=== PATIENT | male | born 1950 | race Caucasian/White ===

== ENCOUNTER 2024-11-08 09:01 | Inpatient (IN) | payer MEDICARE, BC ==
[~2024-11-08] VITALS: Ht 175.3 cm; Wt 104.4 kg
[2024-11-08] VITALS (19 sets, daily range): BP systolic 71–193; BP diastolic 44–73; PULSE 60–98; RESP 14–27; O2SAT 94–100
[~2024-11-08 09:01] MED LIST: heparin 1,000 UNITS/NS 500ml (2 units/mL) BAG ONE
[2024-11-08] MEDS: epiNEPHrine inj 5 MG in normal saline 250ml IV soln 245 ML IV SCH (09:15)
--- NOTE | 2024-11-08 09:15 | CARDIAC CATH REPORT ---
Cardiology Post Cath Findings Findings Findings: 74yo man with unknown PMH presented to [facility] this AM after being found down. There, thought to have STEMI so activated, however, there was a case going on in the lab so he was to be transferred to [facility]. Prior to transfer, had ?PEA vs VT arrest s/p CPR with ROSC. Intubated. On transfer, maxed out on levo, epi, vaso, non-responsive without any sedation. Here, again had VT code s/p CPR with ROSC, cardioverted. Post cardioversion EKG with RBBB, no clear STEMI. Labs revealing a pH of 6.9, LA of 10.7, K 3.2. Recommendations Recommendations Given unknown mental status after prolonged CPR, maxed out on multiple pressors, reports of being a DNR, no clear STEMI on EKG, will not proceed for coronary angiography at this time. JEFF HENDRICKSON MD Nov 08, 2024 09:15
[2024-11-08] MEDS ORDERED: heparin 25,000 UNIT/250ml bag 250 ML IV PRN ×2 (09:20→12:00)
[2024-11-08] MEDS ORDERED: heparin 10,000 units/1 ML INJ IV PRN (09:20)
[2024-11-08 09:26] LABS: ABG BASE EXCESS -14.4 mmol/L (-2.0-3.0); ABG HCO3 16.0 mmol/L (21.0-28.0); ABG OXYGEN SATURATION 92.8 % (94.0-98.0); ABG PCO2 (T) 56.5 mmHg (35.0-48.0); ABG PH (T) 7.069 (7.350-7.450); ABG PO2 (T) 89.5 mmHg (83.0-108.0); FCOHb 0.3 % (0.5-1.5); FHHb 7.2 % (0.0-5.0); FIO2 100.0 mmHg/%; FMetHb 0.3 % (0.0-1.5); FO2Hb 92.2 % (94.0-98.0); MODE VENT - PRVC; PATIENT TEMPERATURE 36.8; PEEP 8 cm H2O; RESPIRATORY RATE 20 b/min; TIDAL VOLUME 550 mL; TOTAL HEMOGLOBIN 13.1 G/dl (13.5-17.5)
[2024-11-08 09:31] LABS: MEAN PLATELET VOLUME 8.0 FL (7.4-10.4); RED CELL DISTRIBUTION WIDTH 13.8 % (11.5-14.5)
[2024-11-08] MEDS ORDERED: iohexol 300mg/ml 100ml inj. ONE (09:35)
[2024-11-08] MEDS: NORepinephrine 8mg/ 250ml NS 250 ML IV SCH (09:39)
[2024-11-08] MEDS: VASOPRESSIN 20 UNITS/NS 100mL 100 ML IV ONE (09:40)
[2024-11-08 09:48] LABS: LEUKOCYTE ESTERASE ,URINE NEGATIVE (Neg); NITRITES, URINE NEGATIVE (Neg); OCCULT BLOOD,URINE NEGATIVE (Neg)
[2024-11-08 09:53] LABS: INR 1.2 INR
[2024-11-08 10:02] LABS: UA COLLECTION TYPE FOLEY CATH
[2024-11-08 10:03] LABS: APTT 83 SECONDS (22-32)
[2024-11-08 10:04] LABS: MUCUS STRANDS MODERATE /LPF (Neg); SQUAMOUS EPITHELIAL CELL,UR MANY /LPF (FEW)
[2024-11-08 10:06] LABS: CREATININE 1.17 MG/DL (0.60-1.10); TOTAL CARBON DIOXIDE 20.2 MMOL/L (24-32); eCRCL 54 ML/MIN; eGFR 61 ML/MIN
--- NOTE | 2024-11-08 10:08 | RADIOLOGY REPORT ---
CHEST RADIOGRAPH Indication: post rosc Technique: Single frontal view of the chest was obtained Comparison: None FINDINGS: Lines and Tubes: Endotracheal tube 4 cm from the isidoro. Nasogastric tube tip in the stomach. Lungs: No focal consolidation. Pleura: No effusion. No pneumothorax. Cardiomediastinal contours: Unremarkable Bones: No acute osseous abnormality. IMPRESSION: Cardiomegaly with CHF
[2024-11-08 10:17] LABS: URINE AMPHETAMINE SCREEN NEGATIVE (Neg); URINE BARBITUATE SCREEN NEGATIVE (Neg); URINE BENZODIAZEPINES SCREEN NEGATIVE (Neg); URINE CANNABINOID SCREEN POSITIVE (Neg); URINE COCAINE SCREEN NEGATIVE (Neg); URINE METHADONE SCREEN NEGATIVE (Neg); URINE OPIATE SCREEN NEGATIVE (Neg); URINE PHENCYCLIDINE SCREEN NEGATIVE (Neg)
[2024-11-08] MEDS: MESSAGE TO NURSING IV ONE ×4 (10:35→19:45)
[2024-11-08] MEDS: heparin 25,000 UNIT/250ml bag 250 ML IV PRN ×2 (10:36→12:15)
--- NOTE | 2024-11-08 10:47 | RADIOLOGY REPORT ---
EXAM: CT CT HEAD INDICATION: fall, trauma, cardiac arrest with rosc TECHNIQUE: CT of the head without intravenous contrast. Radiation Dose : 1. Head: CT Dose: CTDI volume is 71 mGy. Dose-length product is 1586.8 mGy*cm The dose indicators for CT are the volume Computed Tomography (CT) Dose Index (CTDIvol) and the Dose Length Product (DLP), and are measured in units of mGy and mGy-cm, respectively. These indicators are not patient dose, but values generated from the CT scanner acquisition factors. The report includes radiation exposure data for exposures received during this examination. COMPARISON: None FINDINGS: There is no evidence of acute intracranial hemorrhage, extra-axial collection, mass effect, midline s hift, herniation or hydrocephalus. The ventricles, sulci and cisterns are age appropriate. The meadows-white differentiation is intact. Patchy periventricular and subcortical white matter hypoattenuation is nonspecific but may be related to small vessel ischemic disease. The visualized paranasal sinuses and mastoid air cells are clear. The surrounding soft tissues and osseous structures are unremarkable. IMPRESSION: No acute intracranial abnormality. Radiation optimization: All CT scans at this facility use at least one of these dose optimization mackenzie hniques: automated exposure control mA and/or kV adjustment per patient size (includes targeted exam s where dose is matched to clinical indication) or iterative reconstruction.
--- NOTE | 2024-11-08 10:50 | RADIOLOGY REPORT ---
EXAM: CT CT T L SPINE HISTORY: fall, trauma, cardiac arrest with rosc COMPARISON: None CTDIvol 35 mGy, DLP 1964 mGy*cm. TECHNIQUE: Multiple axial CT images of the spine were obtained using bone algorithm. Axial and henriquez l reformatting was done. Bone and soft tissue windows were reviewed. FINDINGS: No evidence of definite acute fracture, spinal dislocation, or significant appearing acute subluxatio n is seen. Multilevel degenerative changes of the spine. Vascular calcifications of the aorta. Multifocal patchy airspace disease of the visualized lungs. IMPRESSION: No definite CT evidence of acute fracture or dislocation of the bony thoracic and lumbar spine.
--- NOTE | 2024-11-08 10:52 | RADIOLOGY REPORT ---
EXAM: CT CT CERVICAL SPINE INDICATION: Fall, trauma, cardiac arrest with rosc EXAM DATE: 11/08/2024 09:54 AM COMPARISON: None TECHNIQUE: Multiple axial CT images of the cervical spine were obtained using bone algorithm. Sagitta l and coronal reformatting was done. Bone and soft tissue windows were reviewed. Radiation Dose Information: CT Dose: CTDI volume is 24.0 mGy. Dose-length product is 597.9 mGy*cm FINDINGS: Support lines and tubes: Endotracheal tube is noted in the isidoro. Enteric tube noted in the esophag us. Both tips extend outside the [id number] of the examination. The cervical alignment is intact. Curvature is maintained. No acute cervical spine fracture is identi fied. The vertebral body heights are intact. No suspicious osseous lesions are identified. Multilevel intervertebral disc space narrowing most severe at C5-C6. Mild spinal stenosis at C5-C6. Multilevel neural foraminal stenosis particularly at C5-C6. There is no prevertebral soft tissue swelling. Interlobular septal thickening and ground-glass opacities in the upper lobes consistent with pulmonar y edema. Gas in the right brachiocephalic vein and left external jugular vein which may be related to injectio n. IMPRESSION: 1. No evidence of acute cervical spine fracture or traumatic malalignment. 2. Multilevel degenerative changes in the cervical spine. 3. Pulmonary edema in the partially imaged upper lobes. All CT scans at this medical facility are performed using dose modulation techniques as appropriate t o a performed exam including the following: Automated exposure control was utilized; adjustment of th e MA and/or KV according to patient size; and use of iterative reconstruction technique.
[2024-11-08 10:54] LABS: ETHANOL < 10 MG/DL (<10); PRO BRAIN NATRIURETIC PEPTIDE 687 PG/ML (0-450)
--- NOTE | 2024-11-08 11:13 | RADIOLOGY REPORT ---
Exam: CT CT CHEST ABDOMEN PELVIS W/ IV CONTRAST History: fall, trauma, cardiac arrest with rosc Comparison Study: None Technique: Multidetector CT of the chest, abdomen and pelvis was performed from lower neck to pubic s ymphysis. Intravenous contrast was administered during this examination. Coronal and sagittal multipl al reformats were performed by the technologist on a separate workstation. Radiation Dose Information: CT Dose: CTDI volume is 29.8 mGy. Dose-length product is 1754.7 mGy*cm Findings: Support lines and tubes: The endotracheal tube terminates above the isidoro. The enteric tube termina marlena in the stomach. Lower neck: Unremarkable thyroid. Lungs: Diffuse bilateral ground-glass opacities and interlobular septal thickening. Bilateral lower lobe opacities. Pleura: No pneumothorax. No large pleural effusion. Central airways: Patent. Heart/Vascular Structures: The heart is enlarged. No pericardial effusion. Coronary artery calcifica tions. AICD noted. Normal caliber thoracic aorta without aneurysm or dissection. There is filling d efect in the left lower lobe pulmonary artery consistent with pulmonary embolism. RV to LV ratio devang ures 1.5. Lymph Nodes: No adenopathy. Liver: The liver is normal in size. No focal lesions. Normal hepatic vascular enhancement. Gallbladder and Biliary Tree: Enhancement of the gallbladder wall. No calcified gallstones noted. No biliary ductal dilatation. Spleen: Unremarkable Pancreas: The pancreas is normal in appearance without focal lesions or abnormal enhancement. Adrenal Glands: High attenuation of the bilateral adrenal glands. No mass. Kidneys: Kidneys demonstrate normal symmetric enhancement without focal lesions, calculi or hydroneph rosis. Bladder: Gipson catheter in the urinary bladder. Urinary bladder wall thickening. Bowel: The stomach is grossly normal in appearance. Small bowel and colon are normal in caliber and d istribution. The appendix is not visualized; however, no secondary findings of acute appendicitis id entified. Ascites: Absent. Lymphadenopathy: No mesenteric, retroperitoneal or periportal lymphadenopathy. Abdominal Wall and Mesentery: Unremarkable. Vasculature: The visualized abdominal aorta is normal in size and caliber. Abdominal and pelvic vess els demonstrate normal enhancement. There are atherosclerotic calcifications in the aorta. Pelvic Organs: Unremarkable. Musculoskeletal: Acute fractures of the right 2nd, 3rd, 4th, 5th, 6th anterior ribs and acute fractur es of the left 2nd, 3rd, 4th, 5th and 6 anterior ribs. IMPRESSION: 1. Left lower lobe pulmonary embolism. RV to LV ratio measures 1.5. 2. Acute bilateral rib fractures. 3. Wall thickening of the urinary bladder may be related to underdistention however correlation for c ystitis recommended. All CT scans at this medical facility are performed using dose modulation techniques as appropriate t o a performed exam including the following: Automated exposure control was utilized; adjustment of th e MA and/or KV according to patient size; and use of iterative reconstruction technique.
[2024-11-08] MEDS: midazolam 100mg in NS 100ml 100 ML IV SCH (11:52)
--- NOTE | 2024-11-08 12:00 | Physician Documentation ---
History of Present Illness ~ Chief Complaint: Code Blue Stated Complaint: CODE Time Seen by MD: 09:09 HPI History, review of systems, physical examination extremely limited due to acuity of patient's clinical condition. This is a 74-year-old gentleman from [facility], who had a witnessed collapse with either myoclonic jerking or seizure-like activity, was found to have STEMI at the outside facility. The catheterization lab at the outside facility was encumbered and transfer was ini tiated for microbiology lab assistant and further management. The patient coded at the outside facility, they obtained return of spontaneous circulation with what was interpreted as a team stone like a ST changes in inferior leads. The patient was accepted for transfer pending evaluation whether his appropriate to go to our microbiology lab assistant. On arrival history is not obtainable from the patient. Per nurse that accompanied the patient patient was activated as a level one trauma. Unknown what imaging was done at the outside facility. He was evaluated by trauma surgeon and deemed to be appropriate for a transfer here as a STEMI rather than local admitted as a trauma. Patient is full code her . Medication Reconciliation Allergies: Coded Allergies: No Known Allergies (Unverified , 11/08/24) Miscellaneous Medications Unable to Obtain Medications (Unable to Obtain Medications), (Reported) Review of Systems ROS Limited as above Physical Exam Vital Signs: Temperature: 98.2, Source: Bladder, Heart Rate: 100, Respiratory Rate: 22, BP: 129/67, Pulse Oximetry: 100, Weight: 100.000 Oxygen Flow Rate: 0 Physical Exam GENERAL: Comatose, intubated, sedated, GCS 3T, no apparent distress, chronical ly ill appearing, does not answers questions, does not follows commands appropriately. Patient assessed immediately upon arrival and found to be in the pulseless state. CPR was initiated. HEENT: Abrasion to the nose, normocephalic, pupils equal at 2 mm and very sluggishly reactive, unable to assess extraocular range of motion of the eyes, sclerae anicteric, mucus membranes dry, oropharynx is contains endotracheal tube no stridor. NECK: supple, full passive range of motion, trachea midline, no thyromegaly, no lymphadenopathy, no JVD. CARDIOVASCULAR: Initially no spontaneous rhythm, after return of spontaneous circulation V-tach, after cardioversion sinus rhythm with a regular rate and rhythm , no murmurs/gallops/rubs, Pulses are 2+ in all extremities and symmetric. Capillary refill less than 2 seconds. PULMONARY: Mechanically ventilated good air movement ,no respiratory distress, coarse breath sounds bilaterally, no wheezing, no ronchi, no rales, no accessory muscle use. GASTROINTESTINAL: Soft, non-tender, non-distended, normal active bowel sounds, no organomegaly, no pulsatile masses, no CVA tenderness. NEUROLOGIC: GCS 3T. Meaningful neurologic examination not possible MUSCULOSKELETAL: There is full range of motion of all extremities. There is no joint pain or joint swelling or joint erythema. There is no muscle pain or t enderness or swelling. EXTREMITIES: warm, well-perfused, no cyanosis, no clubbing, no edema, no acute deformities. Skin: warm, dry, no rashes or lesions, no jaundice, no petechiae orpurpura. No ecchymosis. PSYCHIATRIC: Unable to assess Focused: Chest wall appears to have bilateral rib fractures. Procedures Intubation Intubation Time: 08 Endotracheal Tube Size: 8.0 Progress Results/Orders Results/Orders Orders - RIGO ULRICH DO Abg (Arterial Blood Gas) (11/08/24 09:09) Chest,Single View (11/08/24 09:09) Monitor (11/08/24 09:09) Saline Lock (11/08/24 09:09) Vasopressin 20 Units/Ns 100ml (Vasopress (11/08/24 09:10) Ct Cervical Spine (11/08/24 10:00) Ct Head (11/08/24 10:00) Ct Chest Abdomen Pelvis (11/08/24 10:00) Oxygen (11/08/24 09:19) Norepinephrine 8mg/ 250ml Ns (Norepineph (11/08/24 09:20) Normal Saline 250ml... W/Epinephrine Inj (11/08/24 09:20) Fentanyl-0.9 % Nacl/Pf (Fentanyl 1,000mc (11/08/24 09:20) Ct T&L Spine (11/08/24 10:00) Ventilator Settings (11/08/24 11:18) Cult Sputum + Gram Stain (11/08/24 11:18) Heparin 10,000 Unit/Ml 1ml (Heparin 10,0 (11/08/24 12:00) Heparin 25,000 Unit/250ml Bag (Heparin 2 (11/08/24 12:02) Hospitalist Icu Consultation (11/08/24 12:51) Fill Out Med Reconciliation (11/08/24 12:51) Dvt Ptt (11/08/24 18:15) Completed Orders - RIGO ULRICH DO Electrocardiogram (11/08/24 09:09) Cbc/Diff (11/08/24 09:09) Chest,Single View (11/08/24 09:09) MG (11/08/24 09:09) CMP (11/08/24 09:09) Hs Troponin I W Calculations (11/08/24 09:09) Hs Troponin I W Calculations (11/08/24 11:09) Hs Troponin I W Calculations (11/08/24 12:09) Pt Inr (11/08/24 09:22) PTT (11/08/24 09:22) Drug Screen, Urine (11/08/24 09:22) Ct Cervical Spine (11/08/24 10:00) Ct Head (11/08/24 10:00) Ct Chest Abdomen Pelvis (11/08/24 10:00) Lacticsepsis (11/08/24 09:22) Heparin 25,000 Unit/250ml Bag (Heparin 2 (11/08/24 09:20) Heparin 10,000 Unit/Ml 1ml (Heparin 10,0 (11/08/24 09:20) Midazolam 100mg In Ns 100ml (Midazolam-N (11/08/24 09:20) Iohexol 300mg/Ml 100ml Inj. (Omnipaque-3 (11/08/24 09:35) Heparin 25,000 Unit/250ml Bag (Heparin 2 (11/08/24 09:40) Ct T&L Spine (11/08/24 10:00) Ethanol (11/08/24 09:24) Lipase (11/08/24 09:24) PBNP (11/08/24 09:24) Message To Nursing (11/08/24 09:45) Ua W/Microscopic, Cult If Ind (11/08/24 09:31) Message To Nursing (11/08/24 11:40) Heparin 25,000 Unit/250ml Bag (Heparin 2 (11/08/24 12:00) Message To Nursing (11/08/24 12:05) Normal Saline 1000ml (Sodium Chloride 10 (11/08/24 12:10) Lactic,2hr (11/08/24 12:46) Medications Received in ER Medications (Trade) Dose Ordered Sig/Declan Route PRN Reason Start Time Stop Time Status Last Admin Dose Admin Heparin Sodium/ Dextrose 250 ml @ 9 mls/hr [id number] PRN IV TO MAINTAIN PTT WITHIN RANGE 11/08/24 12:02 11/08/24 12:15 9 MLS/HR Sodium Chloride 1,000 ml @ 1,000 mls/hr ONCE ONCE IV 11/08/24 12:10 11/08/24 13:09 DC 11/08/24 12:13 1,000 MLS/HR Propofol 100 ml @ 3 mls/hr [id number] IV 11/08/24 13:55 11/08/24 14:30 3 MLS/HR Vital Signs 11/08/24 11/08/24 11/08/24 11/08/24 09:02 09:04 09:17 09:26 Temp 98.4 98.4 Pulse 60 81 61 60 Resp 20 16 20 20 B/P (MAP) 171/98 131/70 (90) 157/82 (107) Pulse Ox 97 97 94 95 FiO2 100 100 100 11/08/24 11/08/24 11/08/24 11/08/24 09:35 09:39 10:24 10:30 Temp 98.4 98.4 Pulse 61 67 70 Resp 20 22 22 B/P (MAP) 157/133 (141) 170/86 136/53 (80) Pulse Ox 97 94 98 FiO2 100 100 100 11/08/24 11/08/24 11/08/24 11/08/24 10:46 10:56 11:02 11:06 Temp 98.4 98.4 98.4 Pulse 72 70 68 67 Resp 24 22 22 22 B/P (MAP) 165/67 (99) 148/57 (87) 107/51 (69) 103/47 (65) Pulse Ox 97 95 98 98 O2 Flow Rate 0 FiO2 100 100 100 11/08/24 11/08/24 11/08/24 11/08/24 11:15 11:37 11:52 11:53 Temp 98.4 98.2 Pulse 70 100 Resp 22 22 B/P (MAP) 113/53 104/53 (70) 133/68 129/67 (87) Pulse Ox 100 100 FiO2 100 100 11/08/24 11/08/24 11/08/24 11/08/24 12:08 12:19 13:21 13:25 Temp 98.2 98.0 98.0 Pulse 99 99 93 98 Resp 22 22 23 24 B/P (MAP) 123/67 (85) 128/69 (88) 123/76 (92) Pulse Ox 100 100 99 100 O2 Flow Rate 0 0 FiO2 100 100 100 80 11/08/24 11/08/24 11/08/24 11/08/24 13:33 13:41 13:42 14:30 Temp 98.0 98.0 Pulse 87 74 Resp 23 23 B/P (MAP) 131/72 (91) 119/63 (81) 120/60 Pulse Ox 100 100 FiO2 80 50 50 11/08/24 14:31 Temp 98.5 Pulse 76 Resp 21 B/P (MAP) 121/65 (83) Pulse Ox 100 FiO2 49 Laboratory Tests Test 11/08/24 09:19 11/08/24 09:24 11/08/24 09:31 11/08/24 11:16 Blood Gas Specimen Type Arterial Blood Gas Puncture Site Wilmer O2 Saturation 92.8 L Arterial Blood pH (Temp corrected) 7.069 *L Arterial Blood pCO2 (Temp correct) 56.5 H Arterial Blood pO2 (Temp corrected) 89.5 Arterial Blood PO2/FiO2 Ratio 0.91 Arterial Blood HCO3 16.0 L Arterial Blood Base Excess -14.4 L Arterial Blood Oxyhemoglobin 92.2 L Arterial Blood Carboxyhemoglobin 0.3 L Arterial Blood Methemoglobin 0.3 Arterial Blood Deoxyhemoglobin 7.2 H Andrea Test Na Blood Gas Hemoglobin 13.1 L Blood Gas Temperature 36.8 Blood Gas Set Respiration Rate 20 Blood Gas Modality Vent - prvc FiO2 100.0 Blood Gas Tidal Volume 550 Blood Gas PEEP 8 Blood Gas Critical Value Called To Dr. santos ji White Blood Count 11.1 H Red Blood Count 4.07 L Hemoglobin 12.3 L Hematocrit 38.2 L Mean Corpuscular Volume 93.9 Mean Corpuscular Hemoglobin 30.2 Mean Corpuscular Hemoglobin Concent 32.2 L Red Cell Distribution Width 13.8 Platelet Count 138 L Mean Platelet Volume 8.0 Neutrophils (%) (Auto) 55.1 Lymphocytes (%) (Auto) 38.9 Monocytes (%) (Auto) 2.3 Eosinophils (%) (Auto) 3.0 Basophils (%) (Auto) 0.7 Neutrophils # (Auto) 6.1 Lymphocytes # (Auto) 4.3 Monocytes # (Auto) 0.3 Eosinophils # (Auto) 0.3 Basophils # (Auto) 0.1 CBC Comment Prothrombin Time 12.4 H INR International Normalized Ratio 1.2 Activated Partial Thromboplast Time 83 *H Coagulation Comments Sodium Level 140 Potassium Level 3.1 L Chloride Level 103 Carbon Dioxide Level 20.2 L Anion Gap 17 H Blood Urea Nitrogen 15 Creatinine 1.17 H Estimated GFR/1.73 m2 61 BUN/Creatinine Ratio 12.8 Glucose Level 354 H Calcium Level 10.4 H Magnesium Level 2.6 H Total Bilirubin 0.3 Aspartate Amino Transf (AST/SGOT) 267 H Alanine Aminotransferase (ALT/SGPT) 260 H Alkaline Phosphatase 84 Troponin I High Sensitivity 196 *H 696 *H Pro-B-Type Natriuretic Peptide 687 H Total Protein 5.5 L Albumin 2.6 L Globulin 2.9 Albumin/Globulin Ratio 0.9 L Lipase 49 Chemistry Comments Ethyl Alcohol Level < 10 Urine Specimen Description Gipson cath Urine Color Yellow Urine Clarity Slightly cloudy Urine pH 6.0 Urine Specific [place] 1.025 Urine Protein Negative Urine Glucose (UA) Negative Urine Ketones Negative Urine Occult Blood Negative Urine Nitrite Negative Urine Bilirubin Negative Urine Urobilinogen 1.0 Urine Leukocyte Esterase Negative Urine RBC None seen Urine WBC 0-4 Urine Squamous Epithelial Cells Many Urine Bacteria None seen Urine Mucus Moderate Urine Culture Indicated Not ind Volume Urine Centrifuged 2 ml Urine Comment Low volume Urine Opiates Screen Negative Urine Methadone Screen Negative Urine Fentanyl Screen Negative Urine Barbiturates Screen Negative Urine Phencyclidine Screen Negative Urine Amphetamines Screen Negative Urine Benzodiazepines Screen Negative Urine Cocaine Screen Negative Urine Cannabinoids Screen Positive Drug Screen Comment Lactic Acid Level 8.8 *H Troponin I High Sens Percent Delta 255 Troponin I Hi Sens Absolute Change 500 Test 11/08/24 13:36 11/08/24 14:44 Blood Gas Specimen Type Arterial Blood Gas Puncture Site Wilmer O2 Saturation 99.2 H Arterial Blood pH (Temp corrected) 7.411 Arterial Blood pCO2 (Temp correct) 23.9 L Arterial Blood pO2 (Temp corrected) 216.2 H Arterial Blood PO2/FiO2 Ratio 2.73 Arterial Blood HCO3 14.9 L Arterial Blood Base Excess -7.9 L Arterial Blood Oxyhemoglobin 98.8 H Arterial Blood Carboxyhemoglobin 0.3 L Arterial Blood Methemoglobin 0.1 Arterial Blood Deoxyhemoglobin 0.8 Andrea Test Na Blood Gas Hemoglobin 14.0 Blood Gas Temperature 36.5 Blood Gas Set Respiration Rate 22 Blood Gas Modality Vent - prvc FiO2 80.0 Blood Gas Tidal Volume 550 Blood Gas PEEP 8 Lactic Acid Level 7.2 *H Troponin I High Sensitivity 1468 *H Troponin I High Sens Percent Delta 110 Troponin I Hi Sens Absolute Change 772 Medical Decision Making Findings Facility Status: ED Holds, RME process The plan was discussed with the patient, who demonstrates clear understanding of the plan and is in agreement with the plan unless otherwise noted in the chart. All questions have been answered, all concerns were addressed unless otherwise documented. I was available throughout their ED stay for frequent reassessment and questi ons. Differential Diagnoses (considered and possible or likely): [There is a rather l arge list of reasons for an elderly man who sustained a collapse resultant in cardiopulmonary arrest. Differential includes but not limited to seizure, with a result in hypoxia, PE, ACS, STEMI, malignant arrhythmia, subarachnoid, asystole] ??Differential Diagnoses (considered and unlikely, not requiring evaluation currently): [Less likely to represent stroke] MDM Data Please see HPI for the following: Independent Historians and external Records Review. Historian: EMS, nurse that accompanied the patient from the outside facility, record review Independent Historians: ?[Family] Medication Management: [Reviewed medication list] Social History and determinants: [Reviewed] Please see the body of the note for the following: Any independent interpretations of ECG, imaging studies. All vitals signs/haemodynamics, ordered tests were independently reviewed and interpreted by myself. Nursing triage complaint and vitals reviewed, additional nursing notes were reviewed as available and I agree unless otherwise noted or documented in contradiction in the chart Vital Signs: Independently reviewed Labs: Independently interpreted Imaging: Independently interpreted Old Medical Records: Independently reviewed, see HPI for relevant summary and information Pulse Oximetry: [99% on the ventilator] interpreted as [hypoxia] by me [Ui Ux Developer: [Regular Rate, Regular rhythm, no ectopy, NSR] reviewed and interpreted by me] Additionally notably showing: [Initially was not cardiopulmonary arrest immediately upon arrival, CPR was initiated, return rhythm was V-tach, cardioverted into sinus. Remains on pressors.] Tests considered but not ordered include: [Hemodynamics reviewed. Continues to require pressors. No neurologic improvement. Laboratory studies showed minimal leukocytosis, no anemia, coagulation panel shows normal INR, elevated APTT consistent with the patient being on heparin drip. UA nondiagnostic for UTI. Blood gas showed mixed metabolic and respiratory acidosis. Chemistry shows SHALOM, transaminitis likely from shock liver, elevated troponin, I elevated BNP. Lip ase is normal. U tox is positive for cannabinoids. Trauma imaging was obtained. Chest x-ray shows appropriate positioning of endotracheal tube. Head CT shows no acute intracranial abnormality. CT cervical spine shows no fracture or subluxation. CT of the chest, abdomen and pelvis shows a fairly sizable left lower lung PE. RV to LV ratio is 1.5. Multiple rib fractures as a result of CPR. CT of the T and L-spine shows no acute fracture.] Social Determinants of Health Impact: Patient was evaluated in [facility] [place] to healthcare due to below par ratio of patient to medical providers. [] Comorbid Conditions Impacting Present Evaluation and Care/Treatment: [Multiple, see list] Management Discussions with other Healthcare Providers: [Dr. Deejay Jackson drawstring knotter initially evaluated the patient. Patient is too unstable to proceed to catheterization lab. Repeat EKG does not show stable chronic right bundle-branch block. Podiatry Assistant regarding admission] Treatment and Disposition Medication Management (Given or considered): []. See EMR for details Consideration for Hospitalization/Escalation/Deescalation of Care: Admission for critical care management is required for further management of his condition. ?ED Course:?[No clinical improvement. Neurologically even off sedation during sedation vacation there is no activity. Patient arrived on heparin, heparin was continued. Doses adjusted per pharmacy.] ?Shared decision making:?[Discussed prognosis with the . She understands the prognosis is grave, she wants everything to be continued, however if his heart stops she does not want any further CPR. At this point he is DNR, selective measures with the continued care until potential cardiac arrest.] Code status: DNR Please see the full Electronic Medical Record for full details of nursing documentation, medications list, other records of complete past medical history and conditions, vital signs, laboratory studies, and any radiologic study i nterpretations by radiologists. Portions of this note were completed using [employer] dictation software and as a result there may exist minor errors in spelling. I have reviewed elements of past family and social history and agree as included in note. 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 knotter Admission Level of Care: Critcal Care Impression: Primary Impression: Cardiopulmonary arrest with successful resuscitation Additional Impressions: Ventricular tachycardia Elevated troponin Multiple rib fractures Pulmonary embolus Condition: Critical Referrals: NO PRIMARY CARE PROVIDER (PCP) Education Educated: Family Educated regarding: diagnosis, treatment, prognosis Critical Care Note Critical Care Note CRITICAL CARE TIME: [ 75] minutes Treatments/Evaluations: Close monitoring and treatment of unstable vital signs, cardiorespiratory, and neurologic status, while maintaining tight balance of fluid, respiratory, and cardiac interventions. This time includes discussing the case with the patient and the patients family. This time does not include all procedures stated elsewhere in this record. This time also includes reviewing old records, labs and radiological studies. This time includes examining and re- examining the patient. Additionally, this time also includes arranging care with admitting and consulting physicians. Signature Scribe Signature: No scribe Attestation: This note accurately reflects clinical decisions, work performed by myself, Rigo Ulrich, RIGO ANDUJAR DO Nov 08, 2024 12:00
[2024-11-08] MEDS: normal saline 1000ml 1,000 ML IV ONE (12:13)
--- NOTE | 2024-11-08 12:17 | ELECTROCARDIOGRAPH REPORT ---
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 Jj Tomlinson Measurements Intervals [place] Rate: 85 P: 0 ND: 48 QRS: -62 QRSD: 225 T: 100 QT: 514 QTc: 612 Interpretive Statements Ventricular-paced complexes No further rhythm analysis attempted due to paced rhythm Right bundle branch block Electronically Signed On 11-09-2024 10:24:[address] Jj Tomlinson Please click the below link to view image of tracing.
[2024-11-08] MEDS: FENTANYL-0.9 % NACL/PF 100 ML IV SCH (12:26)
[2024-11-08 13:40] LABS: ABG BASE EXCESS -7.9 mmol/L (-2.0-3.0); ABG HCO3 14.9 mmol/L (21.0-28.0); ABG OXYGEN SATURATION 99.2 % (94.0-98.0); ABG PCO2 (T) 23.9 mmHg (35.0-48.0); ABG PH (T) 7.411 (7.350-7.450); ABG PO2 (T) 216.2 mmHg (83.0-108.0); FCOHb 0.3 % (0.5-1.5); FHHb 0.8 % (0.0-5.0); FIO2 80.0 mmHg/%; FMetHb 0.1 % (0.0-1.5); FO2Hb 98.8 % (94.0-98.0); MODE VENT - prvc; PATIENT TEMPERATURE 36.5; PEEP 8 cm H2O; RESPIRATORY RATE 22 b/min; TIDAL VOLUME 550 mL; TOTAL HEMOGLOBIN 14.0 G/dl (13.5-17.5)
[2024-11-08] MEDS ORDERED: propofol 1000mg/100ml bottle 100 ML IV SCH (13:55)
[2024-11-08] MEDS: propofol 1000mg/100ml bottle 100 ML IV SCH (14:30)
--- NOTE | 2024-11-08 14:43 | HISTORY AND PHYSICAL ---
History of Present Illness History of present illness 74-year-old male who is a resident of [facility] in [facility]. The patient fell down today and was taken to [facility] where and had a cardiac arrest enroute and arrived with chest compressions in progress. He had ROSC and he was diagnosed with an inferior wall STEMI by the trauma surgeon. He was hypotensive and was started on pressors that were escalated to include vasopressin, norepinephrine and epinephrine. The patient was transferred to [facility] because the boot and shoe laborer at [facility] was already engaged in a procedure. The patient arrived here at [facility]. He was coded here at [facility] and we have been able to achieve ROSC. The patient had a CTA of the chest that is revealing a pulmonary embolus in the left lower lobe artery. Heparin has been changed from a cardiac infusion drip to pulmonary embolism/DVT heparin drip. They have been weaned down i.e. now off epinephrine but still on norepinephrine drip at 0.3 mcg/kg per minute and vasopressin at 0.01 units/minute. He is on mechanical ventilation. He is sedated with a combination of midazolam and fentanyl. His temperature is 36.6 C. I was consulted to see the patient. He is spontaneously opening his eyes to verbal seen. Expected to stay > 48 hours Yes Reason for Visit: Pulmonary critical care consultation Chief complaint Status post VFib/V-tach arrest Source: Patient, Family, Caregiver, Unable (condition) Past Medical History Past medical history [id number] Alzheimer's disease, no history of coronary artery disease, history of perforated gallbladder that was treated conservatively leading to sepsis in March of 2024 and May of 2024. Past Surgical History Surgical history Total left knee arthroplasty. Medications Current medications Current Medications Vasopressin/ Sodium Chloride 100 ml @ 3 mls/hr [id number] ONCE IV Last administered on 11/08/24at 09:40; Start 11/08/24 at 09:10; Stop 11/09/24 at 18:29 Norepinephrine Bitartrate 250 ml @ 18.75 mls/ hr [id number] IV Last administered on 11/08/24at 09:39; Start 11/08/24 at 09:20 Epinephrine HCl 5 mg/Sodium Chloride 250 ml @ 30 mls/hr [id number] IV Last administered on 11/08/24at 09:15; Start 11/08/24 at 09:20 Heparin Sodium/ Dextrose 250 ml @ 0 mls/hr Q0M PRN IV TO MAINTAIN PTT WITHIN RANGE; Start 11/08/24 at 09:20; Stop 11/08/24 at 09:40; Status DC Heparin Sodium (Porcine) (heparin 10,000 unit/ml 1ml inj) bolus for correct... PRN PRN IV per protocol-CARDIAC; Start 11/08/24 at 09:20; Stop 11/08/24 at 12:03; Status DC Fentanyl Citrate 100 ml @ 0 mls/hr Q0M IV Last administered on 11/08/24at 12:26; Start 11/08/24 at 09:20 Midazolam HCl 100 ml @ 1 mls/hr Q48H IV Last administered on 11/08/24at 11:52; Start 11/08/24 at 09:20; Stop 11/08/24 at 13:55; Status DC Iohexol (Omnipaque-300 100ml polymer) 100 ml STK-MED ONCE .ROUTE ; Start 11/08/24 at 09:35; Stop 11/08/24 at 09:35; Status DC Heparin Sodium/ Dextrose 250 ml @ 8 mls/hr [id number] PRN IV TO MAINTAIN PTT WITHIN RANGE Last administered on 11/08/24at 10:40; Start 11/08/24 at 09:40; Stop 11/08/24 at 12:02; Status DC Non-Formulary Medication 1 each ONCE ONCE IV ; Start 11/08/24 at 09:45; Stop 11/08/24 at 11:23; Status DC Non-Formulary Medication 1 each ONCE ONCE IV ; Start 11/08/24 at 11:40; Stop 11/08/24 at 11:41; Status DC Heparin Sodium/ Dextrose 250 ml @ 0 mls/hr Q0M PRN IV TO MAINTAIN PTT WITHIN RANGE; Start 11/08/24 at 12:00; Stop 11/08/24 at 12:02; Status DC Heparin Sodium (Porcine) (heparin 10,000 unit/ml 1ml inj) maximum re-peat bolus ... PRN PRN IV Heparin bolus per protocol; Start 11/08/24 at 12:00 Heparin Sodium/ Dextrose 250 ml @ 9 mls/hr [id number] PRN IV TO MAINTAIN PTT WITHIN RANGE Last administered on 11/08/24at 12:15; Start 11/08/24 at 12:02 Non-Formulary Medication 1 each ONCE ONCE IV ; Start 11/08/24 at 12:05; Stop 11/08/24 at 12:06; Status DC Sodium Chloride 1,000 ml @ 1,000 mls/hr ONCE ONCE IV Last administered on 11/08/24at 12:13; Start 11/08/24 at 12:10; Stop 11/08/24 at 13:09; Status DC Propofol 100 ml @ 3 mls/hr [id number] IV ; Start 11/08/24 at 13:55; Stop 11/08/24 at 13:54; Status DC Propofol 100 ml @ 3 mls/hr [id number] IV Last administered on 11/08/24at 14:30; Start 11/08/24 at 13:55 Review of Systems Review of Systems Review of Systems Unable to get review of systems. Patient on mechanical ventilation. Allergies: Coded Allergies: No Known Allergies (Unverified , 11/08/24) Exam Vital signs Vital Signs Date Time Temp Pulse Resp B/P (MAP) Pulse Ox O2 Delivery O2 Flow Rate FiO2 11/08/24 14:31 98.5 76 21 121/65 (83) 100 49 11/08/24 14:30 120/60 11/08/24 13:42 50 11/08/24 13:41 98.0 74 23 119/63 (81) 100 50 11/08/24 13:33 98.0 87 23 131/72 (91) 100 80 11/08/24 13:25 98 24 100 80 11/08/24 13:21 98.0 93 23 123/76 (92) 99 0 100 11/08/24 12:19 98.0 99 22 128/69 (88) 100 0 100 11/08/24 12:08 98.2 99 22 123/67 (85) 100 100 11/08/24 11:53 98.2 100 22 129/67 (87) 100 100 11/08/24 11:52 133/68 11/08/24 11:37 98.4 70 22 104/53 (70) 100 100 11/08/24 11:15 113/53 11/08/24 11:06 98.4 67 22 103/47 (65) 98 0 11/08/24 11:02 68 22 107/51 (69) 98 100 11/08/24 10:56 98.4 70 22 148/57 (87) 95 100 11/08/24 10:46 98.4 72 24 165/67 (99) 97 100 11/08/24 10:30 98.4 70 22 136/53 (80) 98 100 11/08/24 10:24 67 22 94 100 11/08/24 09:39 170/86 11/08/24 09:35 98.4 61 20 157/133 (141) 97 100 11/08/24 09:26 98.4 60 20 157/82 (107) 95 100 11/08/24 09:17 98.4 61 20 131/70 (90) 94 100 11/08/24 09:04 81 16 171/98 97 11/08/24 09:02 60 20 97 100 Physical exam HEENT examination: N/C/AT, PERRL Neck: Soft collar on. Supple with no jugular venous distention and no lymphadenopathy. Chest: Symmetric expansion bilaterally. Pulmonary: Clear to auscultation bilaterally with no wheezing no rales or rhonchi. Cardiovascular: Normal S1 and S2 without any S3-S4 gallop. Abdomen: Soft nontender no organomegaly. Extremities no cyanosis, no clubbing and no edema. Neurology: Spontaneously opening eyes and not commanding Laboratory Results Laboratory Tests 11/08/24 09:24 Chemistry Test 11/08/24 09:24 Albumin 2.6 G/DL (3.4-5.0) L Albumin/Globulin Ratio 0.9 (1.1-1.5) L Calcium Level 10.4 MG/DL (8.5-10.1) H Globulin 2.9 G/DL (2.7-4.3) Magnesium Level 2.6 MG/DL (1.5-2.4) H Total Protein 5.5 G/DL (6.4-8.2) L Coagulation Test 11/08/24 09:24 Prothrombin Time 12.4 SECONDS (9.0-12.0) H INR International Normalized Ratio 1.2 INR Activated Partial Thromboplast Time 83 SECONDS (22-32) *H Coagulation Comments Lipid panel Test 11/08/24 09:24 Lipase 49 U/L (16-77) LFT Test 11/08/24 09:24 Alanine Aminotransferase (ALT/SGPT) 260 U/L (12-78) H Alkaline Phosphatase 84 IU/L (46-116) Aspartate Amino Transf (AST/SGOT) 267 U/L (10-37) H Total Bilirubin 0.3 MG/DL (0.1-1.0) Urinalysis Test 11/08/24 09:31 Urine Specimen Description Gipson cath Urine Color Yellow (Yellow) Urine Clarity Slightly cloudy (Clear) Urine pH 6.0 (4.8-8.0) Urine Specific Union 1.025 (1.001-1.035) Urine Protein Negative mg/dl (Neg) Urine Glucose (UA) Negative mg/dl (Neg) Urine Ketones Negative mg/dl (Neg) Urine Occult Blood Negative (Neg) Urine Nitrite Negative (Neg) Urine Bilirubin Negative (Neg) Urine Urobilinogen 1.0 E.U/dL (0.2-1.0) Urine Leukocyte Esterase Negative (Neg) Urine RBC None seen /HPF (0-2) Urine WBC 0-4 /HPF (0-4) Urine Squamous Epithelial Cells Many /LPF (FEW) Urine Bacteria None seen /HPF (Neg) Urine Mucus Moderate /LPF (Neg) Urine Culture Indicated Not ind Volume Urine Centrifuged 2 ml Urine Comment Low volume Microbiology Microbiology 11/08/24 Respiratory Culture - Preliminary, Resulted Assessment/Plan Plan Acute respiratory failure Status post VFib/V-tach arrest leading to a fall Pulmonary embolism of the left lower lobe pulmonary artery Alzheimer's disease STEMI Transaminitis: Most likely due to shock liver Lactic acidosis: Most likely due to cardiac arrest causing poor organ perfusion Hypokalemia Plan Continue mechanical ventilation for now and change Versed to propofol. Continue fentanyl Normothermia protocol to maintain a temperature of 36 C Continue to cycle cardiac enzymes until they peak Continue heparin drip Initiate amiodarone drip Keep NPO Code status: DNR Sedation/analgesia: Propofol and fentanyl. Midazolam that was infusing at 1 mg an hour discontinued Prophylaxis: Already on heparin drip. Add Protonix drip IVs: Couple of peripheral IVs. Needs central line. Overall prognosis: Guarded Critical care time: 35 minutes. VTE VTE Risk Score VTE Risk Score Reference Ranges: Score 0-1 = Low Risk (Aggressive mobilization; early ambulation; no VTE prophylaxis required) Score 2: Moderate Risk (Intermittent/Pneumatic Compression Device OR Lovenox/Heparin/Coumadin) Score 3-4: High Risk (Intermittent/Pneumatic Compression Device AND Lovenox/Heparin/Coumadin) Score > or = 5: Highest Risk (Intermittent/Pneumatic Compression Device AND Lovenox/Heparin/Coumadin) MAYLIN DACOSTA MD Nov 08, 2024 14:43
[2024-11-08] MEDS ORDERED: magnesium hydroxide 30ml (MOM) UD suspension PO PRN (15:00)
[2024-11-08] MEDS ORDERED: magnesium sulf-water 2g/50mL 50 ML IV PRN (15:00)
[2024-11-08] MEDS ORDERED: magnesium sulf-water 4G/100mL 100 ML IV PRN (15:00)
[2024-11-08] MEDS ORDERED: magnesium Cl slow-release 64mg tablet PO PRN (15:00)
[2024-11-08] MEDS ORDERED: potassium Cl 40MEQ/1/2NS 520ml 520 ML IV PRN (15:00)
[2024-11-08] MEDS ORDERED: mag hydrox/Alum hydrox/simeth 30ml oral suspension PO PRN (15:00)
[2024-11-08] MEDS ORDERED: potassium Cl 20 mEq SR tablet PO PRN ×2 (15:00)
--- NOTE | 2024-11-08 16:01 | RADIOLOGY REPORT ---
CHEST RADIOGRAPH Indication: POST CENTRAL LINE ,CENTRAL LINE PLACEMENT CHECK Technique: Single frontal view of the chest was obtained COMPARISON: None FINDINGS: Endotracheal tube tip projects 5 cm above the isidoro. Nasogastric tube projects towards s tomach. Right IJ catheter tip projects over the SVC. The cardiac silhouette is enlarged. The lungs demonstrate bilateral patchy airspace opacities. The pu lmonary vasculature is prominent. Small bilateral pleural effusions. There is no pneumothorax. Cardia c recording device. IMPRESSION: As above
[2024-11-08 17:16] LABS: ABG BASE EXCESS -10.1 mmol/L (-2.0-3.0); ABG HCO3 12.8 mmol/L (21.0-28.0); ABG OXYGEN SATURATION 99.4 % (94.0-98.0); ABG PCO2 (T) 22.5 mmHg (35.0-48.0); ABG PH (T) 7.375 (7.350-7.450); ABG PO2 (T) 158.5 mmHg (83.0-108.0); FCOHb 0.8 % (0.5-1.5); FHHb 0.6 % (0.0-5.0); FIO2 50.0 mmHg/%; FMetHb 0.3 % (0.0-1.5); FO2Hb 98.3 % (94.0-98.0); MODE PRVC; PATIENT TEMPERATURE 37.5; PEEP 8 cm H2O; RESPIRATORY RATE 22 b/min; TIDAL VOLUME 550 mL; TOTAL HEMOGLOBIN 13.5 G/dl (13.5-17.5)
[2024-11-08] MEDS ORDERED: UNABLE TO OBTAIN (17:34)
[2024-11-08] MEDS ORDERED: calcium chloride 100 MG/1 ML inj IV ONE (18:00)
[2024-11-08] MEDS: sodium bicarbonate 1meq/ml inj 150 ML in dextrose 5%-water 1,000 ML IV SCH (18:23)
--- NOTE | 2024-11-08 18:41 | CARDIOLOGY REPORT ---
APPROVED REPORT EXAM: Comprehensive 2D, Doppler, and color-flow Echocardiogram. Patient Location: 2010 A Blood Pressure: 150/73 mmHg Heart Rate: 118-138 bpm Rhythm: ATRIAL FIBRILLATION Indications PULMONARY EMBOLISM ELEVATED PROBNP (687) HS TROPONIN 196, 696, 1468 S/P CPR L. LOWER LOBE PULMONARY EMBOLISM Senior Engineering Associate: unknown Previous echo: none 2D Dimensions RVDd 5.3 cm IVSd 1.6 (0.7-1.1cm) LVDd 2.8 cm PWd 1.9 (0.7-1.1cm) IVSs 1.9 (0.8-1.2cm) LVDs 2.1 (2.5-4.0cm) PWs 2.0 (0.8-1.2cm) LVOT Diameter 2.18 (1.8-2.4cm) LVEF(%) 54.4 (>50%) Ao Asc Diam.3.49 cm FS (%) 27.0 % SV 16.7 ml CO 3.4 L/min M-Mode Dimensions Left Atrium(MM) 3.35 (2.5-4.0cm) IVSd 1.30 (0.7-1.1cm) LVDd 3.57 (4.0-5.6cm) Aortic Root 3.30 (2.2-3.7cm) PWd 1.30 (0.7-1.1cm) Aortic Cusp Exc 1.78 (1.5-2.0cm) IVSs 2.00 cm LVDs 2.35 (2.0-3.8cm) FS (%) 34 % PWs 2.00 cm ESV(Teich) 19.1 ml Aortic Valve AoV Peak Marito. 141.7 cm/s AoV VTI 18.1 cm AO Peak GR. 8.0 mmHg AO Mean GR. 4 mmHg LVOT VTI 12.00 cm LVOT Peak Marito. 91.9 cm/s JAMES(VTI)/BSA 2.47 cm2/m2 JAMES (VTI) 2.47 cm2 Mitral Valve MV Peak Gr. 5 mmHg MV PHT 32 ms MVA (PHT) 6.88 cm2 MV SBhv615.8 cm/s Tricuspid Valve TR P. Velocity 261 cm/s RAP ESTIMATE 20 mmHg TR Peak Gr. 27 mmHg RVSP 47 mmHg LEFT VENTRICLE Hypovolemic LV size and mildly reduced to low normal function. Moderate concentric hypertrophy. Overa ll LVEF of 55-60% RIGHT VENTRICLE RV is severely dilated with severely reduced function. ?Leadless pacemaker visualized in the RV. RVSP is estimated at 47 mmHg. ATRIA The left atrium size is normal. RA appears severely dilated. AORTIC VALVE Trileaflet AV appears mildly sclerotic without stenosis or insufficiency. MITRAL VALVE Mild MV annular calcification and leaflet thickening without stenosis. Trace regurgitation. TRICUSPID VALVE TV appears structurally normal with mild regurgitation. PULMONIC VALVE Normal PV without stenosis, physiologic insufficiency. GREAT VESSELS Aortic root is normal in size. Ascending aorta is normal in size. IVC is not visualized. PERICARDIUM Normal pericardium. No effusion. Other Information Study Quality: Adequate Conclusion Overall LVEF of 55-60% Hypovolemic LV size and mildly reduced to low normal function. Moderate concentric hypertrophy. RV is severely dilated with severely reduced function. ?Leadless pacemaker visualized in the RV. RVSP is estimated at 47 mmHg. Trileaflet AV appears mildly sclerotic without stenosis or insufficiency. Mild MV annular calcification and leaflet thickening without stenosis. Trace regurgitation. TV appears structurally normal with mild regurgitation. Normal PV without stenosis, physiologic insufficiency. Normal pericardium. No effusion.
[2024-11-08] MEDS ORDERED: MESSAGE TO NURSING IV ONE (19:40)
[2024-11-08] MEDS: K and/or MAG REPLACEMENT MC SCH (20:00)
[2024-11-08] MEDS: docusate sod 100mg capsule PO SCH (20:47)
[2024-11-09] VITALS (35 sets, daily range): BP systolic 101–136; BP diastolic 41–69; PULSE 60–98; RESP 21–31; O2SAT 95–100
[2024-11-09 01:55] LABS: MEAN PLATELET VOLUME 8.2 FL (7.4-10.4); RED CELL DISTRIBUTION WIDTH 13.5 % (11.5-14.5)
[2024-11-09 02:06] LABS: INR 1.2 INR
[2024-11-09 02:09] LABS: APTT 73 SECONDS (22-32)
[2024-11-09 02:15] LABS: CREATININE 2.34 MG/DL (0.60-1.10); PHOSPHORUS 5.8 MG/DL (2.3-4.5); TOTAL CARBON DIOXIDE 26.0 MMOL/L (24-32); eCRCL 27 ML/MIN; eGFR 27 ML/MIN
[2024-11-09 04:05] LABS: ABG BASE EXCESS -0.7 mmol/L (-2.0-3.0); ABG HCO3 23.9 mmol/L (21.0-28.0); ABG OXYGEN SATURATION 98.5 % (94.0-98.0); ABG PCO2 (T) 38.0 mmHg (35.0-48.0); ABG PH (T) 7.413 (7.350-7.450); ABG PO2 (T) 148.0 mmHg (83.0-108.0); FCOHb 0.2 % (0.5-1.5); FHHb 1.5 % (0.0-5.0); FIO2 50.0 mmHg/%; FMetHb 0.0 % (0.0-1.5); FO2Hb 98.3 % (94.0-98.0); MODE VENT - AC; PATIENT TEMPERATURE 36.2; PEEP 8 cm H2O; RESPIRATORY RATE 22 b/min; TIDAL VOLUME 550 mL; TOTAL HEMOGLOBIN 11.9 G/dl (13.5-17.5)
--- NOTE | 2024-11-09 05:53 | RADIOLOGY REPORT ---
CHEST RADIOGRAPH Indication: pt intubated Technique: Single frontal view of the chest was obtained COMPARISON: DI CHEST,SINGLE VIEW on DOS: 11/08/24, DI CHEST,SINGLE VIEW on DOS: 11/08/24 FINDINGS: Lines and Tubes: Unchanged. Lungs: Stable mild patchy bibasilar pulmonary airspace disease. The upper lung zones remain clear. Pleura: No effusion. No pneumothorax. Cardiomediastinal contours: Unremarkable Bones: Unremarkable IMPRESSION: 1. Stable mild patchy bibasilar pulmonary airspace disease. 2. Lines and tubes unchanged.
[2024-11-09 10:19] LABS: APTT 74 SECONDS (22-32)
--- NOTE | 2024-11-09 10:33 | PROGRESS NOTE ---
Progress Note Cardiology Providers to CC CC: CRISTOFER ROSSI MD ~ Subjective Subjective pt who has history of Alzheimer's. Had a VT/VF arrest with rosc. There was a question of inferior STEMI. He was significantly hypotensive and required vasopressin, norepinephrine and epinephrine. Found to have left lower lobe PE with evidence of right heart strain on CT. RV to LV radio 1.5. TTE with dilated RV and reduced function. LVEF preserved with no wall motion abnormalities. evidence of micra on TTE EKG reviewed and reveals a paced rhythm. RT sinus in place being cooled to 36 C Objective Result Diagram: 11/09/2412911/09/24129 Objective General: Intubated. Sedated. Respiratory: Lungs are clear to auscultation bilaterally. No respiratory distress. Chest: Normal shape and size. No accessory muscle use. Cardiovascular: Regular rate and rhythm. S1-S2. No murmur, gallop, rub. Gastrointestinal: Abdomen is soft. Positive bowel sounds. Extremities: No lower extremity edema, cyanosis or clubbing. Skin: Normal color. Warm and dry. Coagulation Studies Laboratory Tests Test 11/08/24 18:13 11/09/24 01:30 11/09/24 08:07 APTT (Heparin Protocol) 46 SECONDS (45-75) Prothrombin Time 12.0 SECONDS (9.0-12.0) INR International Normalized Ratio 1.2 INR Activated Partial Thromboplast Time 74 SECONDS (22-32) *H Coagulation Comments Problem\Assessment\Plan Additional Plan Cardiac arrest VT/VF likley 2/2 LLL pe --keeping normothermic per ICU --weaned off multiple pressors now on only levo. STEMI ruled out --per health communications specialist cardiology no stemi on ekg nstemi --no LV wma on TTE --trop 196, 696, 1468, 2002, 1644 --cont heparin for at least 48 hours from cv standpoint. lll PE --on heparin Marty --mgt per icu Transaminitis --mgt per icu. likely shock liver. discussed with dr. chet rossi. will follow. Supervising Physician: REBA Henley NP Nov 09, 2024 10:33
[2024-11-09] MEDS: MESSAGE TO NURSING IV ONE ×2 (10:46→16:34)
[2024-11-09] MEDS ORDERED: vancomycin/NS 1 GM ADD-VANTAGE 250 ML IV ONE (10:50)
[2024-11-09] MEDS ORDERED: piperacillin/tazo 3.375gm/50ml 50 ML IV SCH (10:50)
[2024-11-09] MEDS ORDERED: ASPI-107 PO (11:01)
[2024-11-09] MEDS ORDERED: BUPR150T8 PO (11:02)
[2024-11-09] MEDS ORDERED: NEOM28.37 TOP (11:02)
[2024-11-09] MEDS ORDERED: EST1T PO (11:03)
[2024-11-09] MEDS ORDERED: FAMO40TA8 PO (11:04)
[2024-11-09] MEDS ORDERED: FURO40TA4 PO (11:05)
[2024-11-09] MEDS ORDERED: LISI-644 PO (11:05)
[2024-11-09] MEDS ORDERED: SERT50TA PO (11:08)
[2024-11-09] MEDS ORDERED: [UNRECOGNIZED DRUG - CODE] PO (11:09)
[2024-11-09] MEDS ORDERED: AMLO5TAB16 PO (11:10)
[2024-11-09] MEDS: docusate sodium 100mg/10ml UD cup NG SCH (12:01)
--- NOTE | 2024-11-09 12:29 | PROGRESS NOTE ---
Subjective Subjective Patient is seen today. No new events . Remains on mechanical ventilation after cardiac arrest. Seems to be responding by nodding his head and tracking. Still on low-dose Levophed. Vasopressin and epinephrine has been weaned off. Reason for visit: Pulmonary critical care follow-up after cardiac arrest Reviewed: Care Plan, H&P, Labs, Radiology Review of Systems Changes from previous H/P or p: No Changes Daily Progress Note Exam Vitals Vital Signs Date Time Temp Pulse Resp B/P (MAP) Pulse Ox O2 Delivery O2 Flow Rate FiO2 11/09/24 12:00 96.8 11/09/24 12:00 69 25 122/45 (70) 97 Mechanical Ventilator 30 11/08/24 13:21 0 Result Diagram: 11/09/24 01311/09/24 0130 Exam HEENT examination: N/C/AT, PERRL Neck: Soft collar on. Supple with no jugular venous distention and no lymphadenopathy. Chest: Symmetric expansion bilaterally. Pulmonary: Clear to auscultation bilaterally with no wheezing no rales or rhonchi. Cardiovascular: Normal S1 and S2 without any S3-S4 gallop. Abdomen: Soft nontender no organomegaly. Extremities no cyanosis, no clubbing and no edema. Neurology: Spontaneously opening eyes and commanding i.e. in nodding his head that he can hear me. Results Coagulation Studies Laboratory Tests Test 11/08/24 18:13 11/09/24 01:30 11/09/24 08:07 APTT (Heparin Protocol) 46 SECONDS (45-75) Prothrombin Time 12.0 SECONDS (9.0-12.0) INR International Normalized Ratio 1.2 INR Activated Partial Thromboplast Time 74 SECONDS (22-32) *H Coagulation Comments VTE VTE Risk Score VTE Risk Score Reference Ranges: Score 0-1 = Low Risk (Aggressive mobilization; early ambulation; no VTE prophylaxis required) Score 2: Moderate Risk (Intermittent/Pneumatic Compression Device OR Lovenox/Heparin/Coumadin) Score 3-4: High Risk (Intermittent/Pneumatic Compression Device AND Lovenox/Heparin/Coumadin) Score > or = 5: Highest Risk (Intermittent/Pneumatic Compression Device AND Lovenox/Heparin/Coumadin) Assessment/Plan Plan Acute respiratory failure Status post VFib/V-tach arrest leading to a fall Pulmonary embolism of the left lower lobe pulmonary artery Alzheimer's disease STEMI Transaminitis: Most likely due to shock liver Lactic acidosis: Most likely due to cardiac arrest causing poor organ perfusion Hypokalemia Plan Continue mechanical ventilation for now and continue fentanyl and propofol. Normothermia protocol to maintain a temperature of 36 C using the [place] Continue to cycle cardiac enzymes until they peak Continue heparin drip Amiodarone drip not initiated. Initiate tube feedings by tomorrow if patient is not extubated. Code status: DNR Sedation/analgesia: Propofol and fentanyl. Midazolam that was infusing at 1 mg an hour discontinued Prophylaxis: Already on heparin drip and Protonix drip IVs: Couple of peripheral IVs. Needs central line. Overall prognosis: Guarded Critical care time: 35 minutes. Expected Outcome/Goals Expected Outcomes/Goals: Initiate nutrition support if expected prolonged intubation, wt maintenance, bowel regularity, skin integrity/wound healing MAYLIN DACOSTA MD Nov 09, 2024 12:29
[2024-11-09] MEDS: piperacillin/tazo 3.375gm/50 ML IV SCH (12:35)
[2024-11-09] MEDS: VANCOMYCIN 1.75GM/WATER FOR INJ (PEG) 350 ML IVPB IV STA (12:35)
[2024-11-09 12:52] LABS: LEUKOCYTE ESTERASE ,URINE TRACE (Neg); NITRITES, URINE NEGATIVE (Neg); OCCULT BLOOD,URINE LARGE (Neg)
[2024-11-09 12:54] LABS: UA COLLECTION TYPE NON-SPECIFIED
[2024-11-09 13:02] LABS: MUCUS STRANDS NONE SEEN /LPF (Neg); SQUAMOUS EPITHELIAL CELL,UR FEW /LPF (FEW)
[2024-11-09 15:58] LABS: APTT 66 SECONDS (22-32)
--- NOTE | 2024-11-09 19:21 | CONSULTATION REPORT ---
Consult Providers to CC ~ History of Present Illness Reason for Admit\Complaint: Cardiogenic shock/ STEMI/ V-tach cardiac arrest History of Present Illness This is a 74-year-old male who was taking a [facility] for a STEMI and had a cardiac arrest in route and Rosc was achieved- there were no rooms at the cardiac catheterization lab in [facility] and the patient was transferred to [facility] where the patient had another cardiac arrest and Foster was obtained. The patient has a CTA of the chest and there was a pulmonary embolism in the left lower lobe the patient is on heparin drip. The patient is intubated on a ventilator and has a cardiogenic shock in his been on multiple pressors currently is on norepinephrine. The patient is primarily managed by the general dentist. Allergies: Coded Allergies: No Known Allergies (Unverified , 11/08/24) Home Medications Home Medications Active Reported Amlodipine Besylate 5 Mg Tablet 1 Tab PO DAILY Slow Release Iron (Ferrous Sulfate) 160 Mg (50 Mg Iron) Tablet.er 1 Tab PO DAILY Zoloft* (Sertraline HCl) 50 Mg Tablet 200 Mg PO DAILY Zestril* (Lisinopril) 20 Mg Tablet 1 Tab PO DAILY Lasix (Furosemide) 40 Mg Tablet 1 Tab PO DAILY Famotidine 40 Mg Tablet 2 Tab PO DAILY Estrace* (Estradiol) 1 Mg Tablet 2 Tab PO BID Wellbutrin SR* (Bupropion HCl) 150 Mg Tablet.sa 1 Tab PO DAILY LOOK-ALIKE SOUND-ALIKE DRUG buSPIRone & buPROPion Neosporin Ointment (Neomycin/Bacitracin/Polymyxinb) 3.5 Mg-400 Unit-5,000 Unit/Gram Oint...g. 1 Applic TOP TID Aspirin Ec (Aspirin) 81 Mg Tablet.dr 1 Tab PO DAILY Past Medical History Past Medical History Alzheimer's disease Sepsis secondary to perforated gallbladder Past Surgical History Surgical History Comment Left total knee arthroplasty Past Social History Social History Comment Unknown the patient is on a ventilator ROS ROS Unable to obtain the patient is on a ventilator Exam Vitals: Vital Signs Date Time Temp Pulse Resp B/P (MAP) Pulse Ox O2 Delivery O2 Flow Rate FiO2 11/09/24 17:55 96.8 71 29 122/46 (71) 100 Mechanical Ventilator 30 11/08/24 13:21 0 General: Gen. Intubated on a ventilator Lungs clear to ascultation bilaterally, no wheezes rales or rhonchi appreciated Heart normal sinus rhythm no murmurs rubs or clicks noted Abdomen soft nontender bowel sounds are normoactive Lower extremities no clubbing cyanosis, nor edema appreciated bilaterally Diagnostic Data Last Recorded Lab Results: 11/09/24 0130 11/09/24 0130 Diagnostic Data: Laboratory Tests Test 11/08/24 18:13 11/09/24 01:30 11/09/24 15:09 APTT (Heparin Protocol) 46 SECONDS (45-75) Prothrombin Time 12.0 SECONDS (9.0-12.0) INR International Normalized Ratio 1.2 INR Activated Partial Thromboplast Time 66 SECONDS (22-32) H Coagulation Comments Problems: (1) Cardiopulmonary arrest with successful resuscitation Status: Acute Additional Plan # cardiac arrest VT/VF In cardiogenic shock On norepinephrine Managed by general dentist # NSTEMI Cardiology- Dr Juani Jackson has elected to do medical management Heparin drip will be continued for at least 48 hours # left lower lobe pulmonary embolism On heparin drip # respiratory failure On a ventilator managed by general dentist # likely bilateral pneumonia # sepsis Blood cultures are negative # transaminitis Secondary to shock liver continue monitor liver function tests # SHALOM possibly secondary to ATN Monitor daily metabolic panels Date of Service: Nov 09, 2024 Billing Provider: RIK HAMMER DO Common Visit Codes: 82318-[id number] INP/OBS CARE (HIGH) RIK HAMMER DO Nov 09, 2024 19:21
[2024-11-09] MEDS: dextrose 50%-water 50ml dispensing syringe IV ONE ×3 (20:29→21:01)
[2024-11-09 23:57] LABS: APTT 59 SECONDS (22-32)
[2024-11-10] VITALS (36 sets, daily range): BP systolic 30–148; BP diastolic 45–97; PULSE 63–128; RESP 18–49; O2SAT 88–100
[2024-11-10 02:41] LABS: MEAN PLATELET VOLUME 8.5 FL (7.4-10.4); RED CELL DISTRIBUTION WIDTH 13.5 % (11.5-14.5)
[2024-11-10 02:51] LABS: APTT 55 SECONDS (22-32); INR 1.0 INR
[2024-11-10 02:52] LABS: CREATININE 2.28 MG/DL (0.60-1.10); PHOSPHORUS 4.1 MG/DL (2.3-4.5); TOTAL CARBON DIOXIDE 25.1 MMOL/L (24-32); eCRCL 28 ML/MIN; eGFR 28 ML/MIN
--- NOTE | 2024-11-10 05:41 | RADIOLOGY REPORT ---
CHEST RADIOGRAPH Indication: INTUBATED Technique: Single frontal view of the chest was obtained Comparison: DI CHEST,SINGLE VIEW on DOS: 11/09/24, DI CHEST,SINGLE VIEW on DOS: 11/08/24, DI CHEST,SINGL E VIEW on DOS: 11/08/24 FINDINGS: Lines and Tubes: Endotracheal tube, enteric catheter and right central venous catheter in satisfactor y position Lungs: Congestion Pleura: No effusion. No pneumothorax. Cardiomediastinal contours: Cardiomegaly Bones: No acute osseous abnormality. IMPRESSION: Lines and tubes in satisfactory position. No significant interval change.
[2024-11-10 06:32] LABS: ABG BASE EXCESS -0.2 mmol/L (-2.0-3.0); ABG HCO3 23.3 mmol/L (21.0-28.0); ABG OXYGEN SATURATION 97.2 % (94.0-98.0); ABG PCO2 (T) 33.2 mmHg (35.0-48.0); ABG PH (T) 7.463 (7.350-7.450); ABG PO2 (T) 93.6 mmHg (83.0-108.0); FCOHb 0.3 % (0.5-1.5); FHHb 2.8 % (0.0-5.0); FIO2 30.0 mmHg/%; FMetHb 0.3 % (0.0-1.5); FO2Hb 96.6 % (94.0-98.0); PATIENT TEMPERATURE 36.5; TOTAL HEMOGLOBIN 10.4 G/dl (13.5-17.5)
[2024-11-10 10:46] LABS: APTT 49 SECONDS (22-32)
[2024-11-10] MEDS ORDERED: vancomycin inj. 750 MG in normal saline 250ml IV soln 250 ML IV SCH (11:00)
--- NOTE | 2024-11-10 11:14 | PROGRESS NOTE- Residence ---
Progress Note - Resident Providers to CC Resident Creating Document: SUSIE HAWTHORNE RES ~ Antibiotic Timeout Antibiotic Ordered?: Yes Subjective Patient is seen and examined today. Remains on mechanical ventilation after cardiac arrest. He is able to hear and wiggling toes without pain, responding by nodding his head and tracking. Tube feed last night was not increased further than 40 mL/hour . Blood glucose reported to be in 60s and 80s & Still on Levophed. Objective Vital Signs Date Time Temp Pulse Resp B/P (MAP) Pulse Ox O2 Delivery O2 Flow Rate FiO2 11/10/24 11:01 97.3 84 28 139/51 (80) 97 Mechanical Ventilator 11/08/24 13:21 0 Result Diagram: 11/10/24 0230 11/10/24 0230 HEENT examination: N/C/AT, PERRL . Intubated&mechanical ventilated and on therapeutic temperature monitoring. Neck: Soft collar on. Supple with no jugular venous distention and no lymphadenopathy. Chest: Symmetric expansion bilaterally. Pulmonary: Clear to auscultation bilaterally with no wheezing no rales or rhonchi. Cardiovascular: Normal S1 and S2 without any S3-S4 gallop. Abdomen: Soft nontender no organomegaly. Extremities no cyanosis, no clubbing and no edema. Neurology: Spontaneously opening eyes and commanding i.e. in nodding his head that he can hear me. Coagulation Studies Laboratory Tests Test 11/08/24 18:13 11/10/24 02:30 11/10/24 08:59 APTT (Heparin Protocol) 46 SECONDS (45-75) Prothrombin Time 10.7 SECONDS (9.0-12.0) INR International Normalized Ratio 1.0 INR Activated Partial Thromboplast Time 49 SECONDS (22-32) H Coagulation Comments Advance Care Planning Advanced Care planning: Add on additional 30 min Plan Plan Status post Cardiac arrest, VT/VF Fall On targeted temperature monitoring of 36.1- Normothermia protocol to maintain a temperature of 36 C using the [facility] Discontinued epinephrine and vasopressin On norepinephrine Berry Picker Machine OperatorLeni is on board NSTEMI Per neon light installer stereotyper apprentice, no STEMI on EKG no LV wall motion abnormalities on TTE trop 196, 696, 1468, 2002, 1644 On heparin drip Acute hypoxemic respiratory failure Left lower lobe pulmonary embolism WBCs have trended down On heparin drip On vancomycin and Zosyn Continue mechanical ventilation for now and continue fentanyl and propofol. ABG is on better side on today Transaminitis, improving Likely secondary to shock liver AST/ALT: 158/176 SHALOM Serum creatinine is 2.28, BUN 38 We will continue to monitor CMP sepsis,poa UTI UA Is positive for uti procalcitonin,lactic acid is elevated on vanc ,zosyn Lactic acidosis Most likely due to cardiac arrest causing poor organ perfusion Improved well from 8.8 to 1.6 on 11/09/2024 Hypokalemia Potassium is 3.8 and improved On potassium replacement protocol Anemia Hemoglobin is 9.8 and hematocrit is 29 Continue to monitor H and H and Transfuse if hemoglobin is less than 7 Gastrointestinal continuous TF using Vital High Protein at 60mL/hr to provide 1440 mL total volume/day, 1440 kcals, 126g protein, and 1204mL water H/O Code status: DNR Sedation/analgesia: Propofol and fentanyl. DVT Prophylaxis: Already on heparin drip Prophylaxis: Protonix Prognosis: Guarded Critical care time: 35 minutes. Date of Service: Nov 10, 2024 Billing Provider: MAYLIN DACOSTA MD, VENKATESH, RES Nov 10, 2024 11:14
[2024-11-10] MEDS ORDERED: mag hydrox/Alum hydrox/simeth 30ml oral suspension NG PRN (11:48)
[2024-11-10] MEDS ORDERED: mag hydrox/Alum hydrox/simeth 30ml oral suspension OGT PRN (11:49)
[2024-11-10] MEDS ORDERED: potassium Cl 20 mEq SR tablet OGT PRN ×2 (11:50→11:51)
[2024-11-10] MEDS ORDERED: magnesium hydroxide 30ml (MOM) UD suspension OGT PRN (11:50)
[2024-11-10] MEDS: MESSAGE TO NURSING IV ONE ×2 (12:03→18:34)
[2024-11-10] MEDS: vancomycin/NS 1 GM ADD-VANTAGE 250 ML IV SCH (13:55)
--- NOTE | 2024-11-10 15:48 | PROGRESS NOTE ---
Progress Note Cardiology Providers to CC ~ Subjective Subjective Patient's and son are at bedside and they were able to provide some more history. Patient has not had a longstanding illness. In May he was admitted with sepsis. Had a reduced EF and was felt to be secondary to takotsubo cardiomyopathy. Overall LVEF was about 25-30%. He was ultimately discharged back to his [facility] care facility. At some point he was also on hospice however he survived longer than was expected and actually improved somewhat in his functional capacity. In May he had a abscess causing sepsis that was ultimately drained by Interventional Radiology. Family reports that his lower extremity edema has improved with Lasix. Has been doing good with physical therapy. Objective Result Diagram: 11/10/2422911/10/24229 Objective General: Intubated. Sedated. Respiratory: Lungs are clear to auscultation bilaterally. No respiratory distress. Chest: Normal shape and size. No accessory muscle use. Cardiovascular: Regular rate and rhythm. S1-S2. No murmur, gallop, rub. Gastrointestinal: Abdomen is soft. Positive bowel sounds. Extremities: No lower extremity edema, cyanosis or clubbing. Skin: Normal color. Warm and dry. Coagulation Studies Laboratory Tests Test 11/08/24 18:13 11/10/24 02:30 11/10/24 08:59 APTT (Heparin Protocol) 46 SECONDS (45-75) Prothrombin Time 10.7 SECONDS (9.0-12.0) INR International Normalized Ratio 1.0 INR Activated Partial Thromboplast Time 49 SECONDS (22-32) H Coagulation Comments Problem\Assessment\Plan Additional Plan Cardiac arrest VT/VF Maybe secondary to pulmonary embolism. --keeping normothermic per ICU --weaned off multiple pressors now on only levo. 11/10/24: Remains on TTM. Remains on Levophed. Plan to continue to monitor. When extubated/good neurologic outcome we will discuss further. Discussed with patient's family who are aware and in agreement with this plan at this time. STEMI ruled out --per curator of education cardiology no stemi on ekg nstemi --no LV wma on TTE --trop 196, 696, 1468, 2002, 1644 --cont heparin for at least 48 hours from cv standpoint. lll PE --on heparin. --we will need oral anticoagulation on discharge. Marty --mgt per icu Transaminitis --mgt per icu. likely shock liver. discussed with dr. chet rossi. will follow. Supervising Physician: REBA Henley NP Nov 10, 2024 15:48
[2024-11-10] MEDS ORDERED: DEXTROSE 15 GM of carb/4 tabs (each vial/BOTTLE has 4 tablets) PO PRN ×2 (16:00)
[2024-11-10] MEDS ORDERED: glucagon, human recombinant 1mg kit SUBCUT PRN (16:00)
[2024-11-10] MEDS ORDERED: dextrose 50%-water 50ml dispensing syringe IV PRN (16:00)
[2024-11-10] MEDS: dextrose 50%-water 50ml dispensing syringe IV PRN (16:06)
[2024-11-10 17:42] LABS: APTT 41 SECONDS (22-32)
[2024-11-10] MEDS: heparin 10,000 units/1 ML INJ IV PRN (17:58)
--- NOTE | 2024-11-10 19:03 | PROGRESS NOTE ---
Daily Progress Note Providers to CC ~ intubated, resting comfortably in the bed Central Line/PICC still needed: Yes Gipson-Non Protocol Gipson Indications Met/Not Met: F/C Indications Met Antibiotic Timeout Antibiotic Ordered?: Yes MRSA Education MRSA Education Provided to pt: Yes Subjective Above Objective Vital Signs Date Time Temp Pulse Resp B/P (MAP) Pulse Ox O2 Delivery O2 Flow Rate FiO2 11/10/24 18:00 96.8 83 31 129/49 (75) 96 Mechanical Ventilator 25 11/08/24 13:21 0 Vital signs, stable ,afebrile. Pulse Oximetry reflects adequate oxygenation 25% on ventilator, sedated General: well developed, well nourished. Sedated, on ventilator Skin: Warm, dry, no pallor, no rash or petechiae. HEENT: Atraumatic, normocephalic, EOMI, anicteric sclera B; pink conjunctiva; PERRLA, normal oropharynx, moist oral and nasal mucosa. Tympanic membrane , nose , throat clear. Neck: Trachea midline. Supple, full range of motion, no JVD, bruit , hepatojugular reflex , lymphadenopathy or masses, or other lesions Cardiac: Regular rhythm, regular rate no murmurs, rubs, or gallops. Normal S1 and S2, no S3 noticed. PMI is normal. Respiratory: Equal breath sounds bilaterally, no tachypnea; lungs clear to auscultation bilaterally, no wheezing ,rub or rales, or crackles. Chest wall is symmetric and without deformity. No signs of trauma. Chest wall is nontender. No signs of respiratory distress. Resonance is normal upon percussion bilaterally. Gastrointestinal: Abdomen symmetric, non-distended, soft, non-tender, normal bowel sounds x4 quadrant, normoactive, no hepatosplenomegaly , no masses , no bruit, no flank pain bilaterally. No voluntary guarding, rebound, or rigidity. No tenderness to percussion. No pulsatile masses. Equal femoral pulses. No Thomas's sign or McBurney point tenderness. Back; no CVA tenderness bilaterally, no deformities. Neck and back are without deformity as well. No tenderness noted on palpation of the spinous processes. Spinous processes are midline. Cervical, thoracic, and lumbar paraspinal muscles are not tender and are without spasm. : normal external genitalia, without lesions, swelling, masses or tenderness. Musculoskeletal: Extremities, normal range of motion, non-tender, muscle strength 5/5 x 4. Negative Homans signs bilaterally on lower extremity. Distal pulses full symmetrical, no clubbing, cyanosis , edema. Neurological: Sedated, on ventilator Psych: Sedated, on ventilator Vascular: Good distal pulses, which are equal x4; capillary refill less than 2 seconds. Lymphatic, no lymphadenopathy. Result Diagram: 11/10/24 0230 11/10/24 0230 Coagulation Studies Laboratory Tests Test 11/08/24 18:13 11/10/24 02:30 11/10/24 17:21 APTT (Heparin Protocol) 46 SECONDS (45-75) Prothrombin Time 10.7 SECONDS (9.0-12.0) INR International Normalized Ratio 1.0 INR Activated Partial Thromboplast Time 41 SECONDS (22-32) H Coagulation Comments Problem\Assessment\Plan Problems/Diagnosis: (1) Cardiopulmonary arrest with successful resuscitation (/plan 1) Cardiopulmonary arrest with successful resuscitation Status: Acute Additional Plan # cardiac arrest VT/VF In cardiogenic shock On norepinephrine Managed by machine former # NSTEMI Cardiology- Dr Juani Jackson has elected to do medical management Heparin drip will be continued for at least 48 hours # left lower lobe pulmonary embolism On heparin drip # respiratory failure On a ventilator managed by machine former # likely bilateral pneumonia Complicated UTI # sepsis secondary to above Blood cultures are negative # transaminitis Secondary to shock liver continue monitor liver function tests # SHALOM possibly secondary to ATN Monitor daily metabolic panels Sepsis Screening Reassessment Date: Nov 10, 2024 Date of Service: Nov 10, 2024 Billing Provider: JIA MAZARIEGOS MD Common Visit Codes: [id number] INP/OBS CARE(HIGH) JIA MAZARIEGOS MD Nov 10, 2024 19:03
[2024-11-10] MEDS: docusate sodium 100mg/10ml UD cup OGT SCH (19:59)
[2024-11-10] MEDS: INSULIN LISPRO 100 UNIT/ML INSULN.PEN MULTI-DOSE SQ SCH (20:00)
[2024-11-11] VITALS (37 sets, daily range): BP systolic 95–146; BP diastolic 38–61; PULSE 72–133; RESP 10–34; O2SAT 78–99
[2024-11-11 00:57] LABS: MEAN PLATELET VOLUME 8.5 FL (7.4-10.4); RED CELL DISTRIBUTION WIDTH 13.5 % (11.5-14.5)
[2024-11-11 01:03] LABS: APTT 64 SECONDS (22-32); INR 1.0 INR
[2024-11-11 01:05] LABS: CREATININE 1.95 MG/DL (0.60-1.10); PHOSPHORUS 4.2 MG/DL (2.3-4.5); TOTAL CARBON DIOXIDE 21.7 MMOL/L (24-32); eCRCL 32 ML/MIN; eGFR 34 ML/MIN
[2024-11-11] MEDS: MESSAGE TO NURSING IV ONE ×4 (01:10→21:36)
[2024-11-11 03:56] LABS: ABG BASE EXCESS -1.9 mmol/L (-2.0-3.0); ABG HCO3 22.9 mmol/L (21.0-28.0); ABG OXYGEN SATURATION 95.2 % (94.0-98.0); ABG PCO2 (T) 38.2 mmHg (35.0-48.0); ABG PH (T) 7.393 (7.350-7.450); ABG PO2 (T) 77.0 mmHg (83.0-108.0); FCOHb 0.1 % (0.5-1.5); FHHb 4.8 % (0.0-5.0); FIO2 30.0 mmHg/%; FMetHb 0.3 % (0.0-1.5); FO2Hb 94.8 % (94.0-98.0); MODE PRVC; PATIENT TEMPERATURE 36.3; PEEP 5 cm H2O; RESPIRATORY RATE 20 b/min; TIDAL VOLUME 550 mL; TOTAL HEMOGLOBIN 9.4 G/dl (13.5-17.5)
--- NOTE | 2024-11-11 05:58 | RADIOLOGY REPORT ---
CHEST RADIOGRAPH Indication: intubated Technique: Single frontal view of the chest was obtained COMPARISON: DI CHEST,SINGLE VIEW on DOS: 11/10/24, DI CHEST,SINGLE VIEW on DOS: 11/09/24, DI CHEST,SINGLE VIEW on DOS: 11/08/24, DI CHEST,SINGLE VIEW on DOS: 11/08/24 FINDINGS: Lines and Tubes: Endotracheal tube, enteric catheter and right central venous catheter in satisfactor y position Lungs: Multifocal airspace disease Pleura: No effusion. No pneumothorax. Cardiomediastinal contours: Cardiomegaly Bones: Unremarkable IMPRESSION: Lines and tubes in satisfactory position. No significant interval change.
[2024-11-11] MEDS: INSULIN LISPRO 100 UNIT/ML INSULN.PEN MULTI-DOSE SQ SCH (12:00)
[2024-11-11 12:51] LABS: APTT 43 SECONDS (22-32)
--- NOTE | 2024-11-11 15:24 | PROGRESS NOTE ---
Progress Note Cardiology Providers to CC ~ Subjective Subjective Patient is now off TTM Been on pressure support all day. Off sedation. Follows commands. Objective Result Diagram: 11/11/24 0037 11/11/24 0037 Coagulation Studies Laboratory Tests Test 11/11/24 00:37 11/11/24 06:32 11/11/24 12:15 Prothrombin Time 10.3 SECONDS (9.0-12.0) INR International Normalized Ratio 1.0 INR APTT (Heparin Protocol) 54 SECONDS (45-75) Activated Partial Thromboplast Time 43 SECONDS (22-32) H Coagulation Comments Problem\Assessment\Plan Additional Plan Cardiac arrest VT/VF Maybe secondary to pulmonary embolism. --keeping normothermic per ICU --weaned off multiple pressors now on only levo. 11/10/24: Remains on TTM. Remains on Levophed. Plan to continue to monitor. When extubated/good neurologic outcome we will discuss further. Discussed with patient's family who are aware and in agreement with this plan at this time. 11/11/24: Off ttm. remains on levo. STEMI ruled out --per tax commissioner cardiology no stemi on ekg nstemi --no LV wma on TTE --trop 196, 696, 1468, 2002, 1644 --cont heparin for at least 48 hours from cv standpoint. lll PE --on heparin. --we will need oral anticoagulation on discharge. Marty --mgt per icu. Improving. Transaminitis --mgt per icu. likely shock liver. Improving discussed with dr. chet rossi. For weekend cardiology needs please contact tax commissioner manager administration. Supervising Physician: REBA Henley NP Nov 11, 2024 15:24
[2024-11-11] MEDS: ringers solution, lacted 1,000 ML IV ONE (15:58)
--- NOTE | 2024-11-11 16:48 | PROGRESS NOTE ---
Daily Progress Note Providers to CC ~ chief complaint, sedated, on ventilator Central Line/PICC still needed: Yes Gipson-Non Protocol Gipson Indications Met/Not Met: F/C Indications Met Antibiotic Timeout Antibiotic Ordered?: Yes MRSA Education MRSA Education Provided to pt: Yes Subjective As above Objective Vital Signs Date Time Temp Pulse Resp B/P (MAP) Pulse Ox O2 Delivery O2 Flow Rate FiO2 11/11/24 16:00 100.8 108 20 95/44 (61) 97 30 11/11/24 08:00 Mechanical Ventilator 11/08/24 13:21 0 Vital signs, stable ,afebrile. Pulse Oximetry reflects adequate oxygenation, sedated, on ventilator, FiO2 30% General: well developed, resting comfortably in the bed, sedated on ventilator Skin: Warm, dry, no pallor, no rash or petechiae. HEENT: Atraumatic, normocephalic, EOMI, anicteric sclera B; pink conjunctiva; PERRLA, normal oropharynx, moist oral and nasal mucosa. Tympanic membrane , nose , throat clear. Neck: Trachea midline. Supple, full range of motion, no JVD, bruit , hepatojugular reflex , lymphadenopathy or masses, or other lesions Cardiac: Regular rhythm, regular rate no murmurs, rubs, or gallops. Normal S1 and S2, no S3 noticed. PMI is normal. Respiratory: Equal breath sounds bilaterally, no tachypnea; lungs clear to auscultation bilaterally, no wheezing ,rub or rales, or crackles. Chest wall is symmetric and without deformity. No signs of trauma. Chest wall is nontender. No signs of respiratory distress. Resonance is normal upon percussion bilaterally. Gastrointestinal: Abdomen symmetric, non-distended, soft, non-tender, normal bowel sounds x4 quadrant, normoactive, no hepatosplenomegaly , no masses , no bruit, no flank pain bilaterally. No voluntary guarding, rebound, or rigidity. No tenderness to percussion. No pulsatile masses. Equal femoral pulses. No Thomas's sign or McBurney point tenderness. Back; no CVA tenderness bilaterally, no deformities. Neck and back are without deformity as well. No tenderness noted on palpation of the spinous processes. Spinous processes are midline. Cervical, thoracic, and lumbar paraspinal muscles are not tender and are without spasm. : normal external genitalia, without lesions, swelling, masses or tenderness. Musculoskeletal: Extremities, normal range of motion, non-tender, muscle strength 5/5 x 4. Negative Homans signs bilaterally on lower extremity. Distal pulses full symmetrical, no clubbing, cyanosis , edema. Neurological: Sedated, on ventilator Psych: Sedated, on ventilator Vascular: Good distal pulses, which are equal x4; capillary refill less than 2 seconds. Lymphatic, no lymphadenopathy. Result Diagram: 11/11/243611/11/2436 Coagulation Studies Laboratory Tests Test 11/11/24 00:37 11/11/24 06:32 11/11/24 12:15 Prothrombin Time 10.3 SECONDS (9.0-12.0) INR International Normalized Ratio 1.0 INR APTT (Heparin Protocol) 54 SECONDS (45-75) Activated Partial Thromboplast Time 43 SECONDS (22-32) H Coagulation Comments Problem\Assessment\Plan Problems/Diagnosis: (1) Cardiopulmonary arrest with successful resuscitation Assessment (/plan 1) Cardiopulmonary arrest with successful resuscitation Status: Acute Additional Plan # cardiac arrest VT/VF In cardiogenic shock On norepinephrine Managed by bus cleaner # NSTEMI Cardiology- Dr Juani Jackson has elected to do medical management Heparin drip will be continued for at least 48 hours # left lower lobe pulmonary embolism On heparin drip # respiratory failure On a ventilator managed by bus cleaner # likely bilateral pneumonia Complicated UTI # sepsis secondary to above Blood cultures are negative # transaminitis Secondary to shock liver continue monitor liver function tests # SHALOM possibly secondary to ATN Monitor daily metabolic panels Sepsis Screening Reassessment Date: Nov 11, 2024 Date of Service: Nov 11, 2024 Billing Provider: JIA MAZARIEGOS MD Common Visit Codes: [id number] INP/OBS CARE(HIGH) JIA MAZARIEGOS MD Nov 11, 2024 16:47
--- NOTE | 2024-11-11 18:12 | PROGRESS NOTE- Residence ---
Progress Note - Resident Providers to CC Resident Creating Document: SUSIE HAWTHORNE RES ~ Antibiotic Timeout Antibiotic Ordered?: Yes Subjective Patient is seen and examined today. Patient is awake and responding to verbal commands and able to hear and wiggling toes without pain. Off the propofol and fentanyl drip from 9:30 a.m. Remains on mechanical ventilation with support after cardiac arrest. No bowel movements since 11/08/2024. Patient is currently on pressor support Objective Vital Signs Date Time Temp Pulse Resp B/P (MAP) Pulse Ox O2 Delivery O2 Flow Rate FiO2 11/11/24 17:39 84 20 97 30 11/11/24 17:00 100.8 138/50 (79) 11/11/24 08:00 Mechanical Ventilator 11/08/24 13:21 0 Result Diagram: 11/11/243611/11/2436 HEENT examination: N/C/AT, PERRL . Intubated&mechanical ventilated. On sedation vacation Neck: Soft collar on. Supple with no jugular venous distention and no lymphadenopathy. Chest: Symmetric expansion bilaterally. Pulmonary: Clear to auscultation bilaterally with no wheezing no rales or rhonchi. Cardiovascular: Normal S1 and S2 without any S3-S4 gallop. Abdomen: Soft nontender no organomegaly. Extremities no cyanosis, no clubbing and no edema. Neurology: Spontaneously opening eyes and commanding i.e. in nodding his head that he can hear me. Coagulation Studies Laboratory Tests Test 11/11/24 00:37 11/11/24 06:32 11/11/24 12:15 Prothrombin Time 10.3 SECONDS (9.0-12.0) INR International Normalized Ratio 1.0 INR APTT (Heparin Protocol) 54 SECONDS (45-75) Activated Partial Thromboplast Time 43 SECONDS (22-32) H Coagulation Comments Advance Care Planning Advanced Care planning: Add on additional 30 min Plan Plan Status post Cardiac arrest, VT/VF Bilateral to 0 3 for 5 6th 2 rib fractures On targeted temperature monitoring of 36.1- Normothermia protocol to maintain a temperature of 36 C using the [facility] Discontinued epinephrine and vasopressin On norepinephrine Glass Robot OperatorLeni is on board 11/11/2024 Off of the TM & we r continuing on levo. is on board NSTEMI Per nurses' association counselor cosmetics supervisor, no STEMI on EKG no LV wall motion abnormalities on TTE trop 196, 696, 1468, 2002, 1644 On heparin drip 11/11/2024 Per cosmetics supervisor patient may need oral anticoagulation on discharge Acute hypoxemic respiratory failure Left lower lobe pulmonary embolism WBCs have trended down On heparin drip On vancomycin and Zosyn Continue mechanical ventilation for now and continue fentanyl and propofol. ABG is on better side on today 11/11/2024: Continue vanco and Zosyn on norepinephrine, on heparin Transaminitis, improving Likely secondary to shock liver AST/ALT: 158/176 On 11/11/2024: AST, ALT is improving SHALOM Serum creatinine is 2.28, BUN 38 We will continue to monitor CMP On 11/11/2024: Right hand function is improving with a creatinine of 1.95 sepsis,poa UTI UA Is positive for uti procalcitonin,lactic acid is elevated Continue vanc ,zosyn Lactic acidosis Most likely due to cardiac arrest causing poor organ perfusion Improved well from 8.8 to 1.6 on 11/09/2024 Hypokalemia Potassium is 3.8 and improved On potassium replacement protocol Anemia Hemoglobin is 9.8 and hematocrit is 29 Continue to monitor H and H and Transfuse if hemoglobin is less than 7 On 11/11/2024: Hemoglobin is 8.8 and hematocrit 25. Continue to monitor h&h Gastrointestinal continuous TF using Vital High Protein at 60mL/hr to provide 1440 mL total volume/day, 1440 kcals, 126g protein, and 1204mL water H/O Code status: DNR Sedation/analgesia: Propofol and fentanyl. DVT Prophylaxis: Already on heparin drip Prophylaxis: Protonix Prognosis: Guarded Critical care time: 35 minutes. Date of Service: Nov 11, 2024 Billing Provider: MAYLIN DACOSTA MD, VENKATESH, RES Nov 11, 2024 18:12
[2024-11-11] MEDS: acetaminophen 325mg/10.15ml oral unit dose solution PO PRN (19:00)
[2024-11-11] MEDS: psyllium seed 5.8 gm packet (sugar-free) PO SCH (20:31)
[2024-11-11 20:53] LABS: APTT 48 SECONDS (22-32)
[2024-11-12] VITALS (34 sets, daily range): BP systolic 88–159; BP diastolic 40–69; PULSE 69–92; RESP 16–29; O2SAT 95–99
[2024-11-12 02:29] LABS: MEAN PLATELET VOLUME 8.2 FL (7.4-10.4); RED CELL DISTRIBUTION WIDTH 13.7 % (11.5-14.5)
[2024-11-12 02:45] LABS: APTT 44 SECONDS (22-32); INR 1.0 INR
[2024-11-12 02:51] LABS: CREATININE 1.59 MG/DL (0.60-1.10); PHOSPHORUS 2.0 MG/DL (2.3-4.5); TOTAL CARBON DIOXIDE 24.9 MMOL/L (24-32); eCRCL 40 ML/MIN; eGFR 43 ML/MIN
[2024-11-12] MEDS: MESSAGE TO NURSING IV ONE ×4 (03:07→22:55)
[2024-11-12 03:19] LABS: ABG BASE EXCESS 1.4 mmol/L (-2.0-3.0); ABG HCO3 22.5 mmol/L (21.0-28.0); ABG OXYGEN SATURATION 98.0 % (94.0-98.0); ABG PCO2 (T) 24.2 mmHg (35.0-48.0); ABG PH (T) 7.588 (7.350-7.450); ABG PO2 (T) 109.2 mmHg (83.0-108.0); FCOHb 0.3 % (0.5-1.5); FHHb 2.0 % (0.0-5.0); FIO2 30.0 mmHg/%; FMetHb 0.3 % (0.0-1.5); FO2Hb 97.4 % (94.0-98.0); MODE ac/prvc; PATIENT TEMPERATURE 37.9; PEEP 5 cm H2O; RESPIRATORY RATE 20 b/min; TIDAL VOLUME 550 mL; TOTAL HEMOGLOBIN 8.1 G/dl (13.5-17.5)
[2024-11-12] MEDS: potassium Cl 20mEq/100mL bag 100 ML IV SCH (04:12)
--- NOTE | 2024-11-12 05:48 | RADIOLOGY REPORT ---
CHEST RADIOGRAPH Indication: while intubated Technique: Single frontal view of the chest was obtained Comparison: DI CHEST,SINGLE VIEW on DOS: 11/11/24, DI CHEST,SINGLE VIEW on DOS: 11/10/24, DI CHEST,SINGLE VIEW on DOS: 11/09/24, DI CHEST,SINGLE VIEW on DOS: 11/08/24, DI CHEST,SINGLE VIEW on DOS: 11/08/24, DI CHEST,SINGLE VIEW on DOS: 11/11/24 FINDINGS: Lines and Tubes: Endotracheal tube, enteric catheter and right central venous catheter in satisfactor y position Lungs: Multifocal airspace disease Pleura: No effusion. No pneumothorax. Cardiomediastinal contours: Cardiomegaly Bones: Unremarkable IMPRESSION: Lines and tubes in satisfactory position. No significant interval change.
[2024-11-12] MEDS: POTASSIUM CHLORIDE 20 MEQ/15 ML oral solution PO SCH (09:09)
[2024-11-12] MEDS: POTASSIUM CHLORIDE 20 MEQ/15 ML oral solution OGT SCH (10:52)
--- NOTE | 2024-11-12 11:05 | PROGRESS NOTE ---
Subjective Subjective Patient is seen and examined today. Remains on mechanical ventilation. Currently undergoing a spontaneous breathing trial. Sedation is off. Patient is awake and responding to verbal commands and able to hear and wiggling toes without pain. Patient is currently on low-dose pressor support i.e. norepinephrine drip at 0.05 mcg per kg per minute Reason for visit: Pulmonary critical care follow-up after cardiac arrest Reviewed: Care Plan, H&P, Labs, Radiology Daily Progress Note Exam Vitals Vital Signs Date Time Temp Pulse Resp B/P (MAP) Pulse Ox O2 Delivery O2 Flow Rate FiO2 11/12/24 10:32 90 23 99 30 11/12/24 08:00 100.4 104/55 (71) 11/11/24 20:00 Mechanical Ventilator 11/08/24 13:21 0 Result Diagram: 11/12/2420911/12/24209 Exam HEENT examination: N/C/AT, PERRL Neck: Soft collar on. Supple with no jugular venous distention and no lymphadenopathy. Chest: Symmetric expansion bilaterally. Pulmonary: Clear to auscultation bilaterally with no wheezing no rales or rhonchi. Cardiovascular: Normal S1 and S2 without any S3-S4 gallop. Abdomen: Soft nontender no organomegaly. Extremities no cyanosis, no clubbing and no edema. Neurology: Spontaneously opening eyes and commanding i.e. in nodding his head that he can hear me. Results Coagulation Studies Laboratory Tests Test 11/12/24 02:10 11/12/24 09:25 Prothrombin Time 10.3 SECONDS (9.0-12.0) INR International Normalized Ratio 1.0 INR Activated Partial Thromboplast Time 44 SECONDS (22-32) H APTT (Heparin Protocol) 62 SECONDS (45-75) Coagulation Comments VTE VTE Risk Score VTE Risk Score Reference Ranges: Score 0-1 = Low Risk (Aggressive mobilization; early ambulation; no VTE prophylaxis required) Score 2: Moderate Risk (Intermittent/Pneumatic Compression Device OR Lovenox/Heparin/Coumadin) Score 3-4: High Risk (Intermittent/Pneumatic Compression Device AND Lovenox/Heparin/Coumadin) Score > or = 5: Highest Risk (Intermittent/Pneumatic Compression Device AND Lovenox/Heparin/Coumadin) Assessment/Plan Plan Status post Cardiac arrest, VT/VF Bilateral to 0 3 for 5 6th 2 rib fractures Completed targeted temperature monitoring utilizing the [employer]. Temperature goal was 36 C. Still on low-dose norepinephrine. NSTEMI: Originally transferred as a STEMI from . 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 ABG is on better side on today 11/11/2024: Continue vanco and Zosyn on norepinephrine, on heparin Transaminitis, improving Due to to shock liver AST/ALT: 158/176 On 11/11/2024: AST, ALT is improving SHALOM Serum creatinine is 1.59, BUN 39 We will continue to monitor CMP sepsis,poa UTI UA Is positive for uti procalcitonin,lactic acid is elevated Continue vanc ,zosyn Lactic acidosis Most likely due to cardiac arrest causing poor organ perfusion Now resolved. Hypokalemia&Hypophosphatemia Replace electrolytes per protocol Anemia Hemoglobin is 7.8 and hematocrit is 22.4 Gastrointestinal continuous TF using Vital High Protein at 60mL/hr to provide 1440 mL total volume/day, 1440 kcals, 126g protein, and 1204mL water H/O Code status: DNR Sedation/analgesia: Propofol and fentanyl. DVT Prophylaxis: Already on heparin drip Prophylaxis: Protonix Prognosis: Guarded Critical care time: 35 minutes. Expected Outcome/Goals Expected Outcomes/Goals: TF tolerance, wt maintenance, bowel regularity, optimal skin integrity MAYLIN DAOCSTA MD Nov 12, 2024 11:05
[2024-11-12] MEDS: POTASSIUM PHOSPHATE IV ONE (11:27)
[2024-11-12] MEDS: NORMAL SALINE IV ONE (11:27)
[2024-11-12] MEDS: VANCOMYCIN LEVEL IV ONE (12:30)
[2024-11-12 15:58] LABS: APTT 54 SECONDS (22-32)
--- NOTE | 2024-11-12 16:41 | PROGRESS NOTE ---
Daily Progress Note Providers to CC Patient continued to be on mechanical ventilation, FiO2 30%, now on spontaneous ventilation trial ~ Central Line/PICC still needed: Yes Gipson-Non Protocol Gipson Indications Met/Not Met: F/C Indications Met Antibiotic Timeout Antibiotic Ordered?: Yes MRSA Education MRSA Education Provided to pt: Yes Subjective As above Objective Vital Signs Date Time Temp Pulse Resp B/P (MAP) Pulse Ox O2 Delivery O2 Flow Rate FiO2 11/12/24 15:00 99.9 82 20 126/56 (79) 97 30 11/12/24 08:00 Mechanical Ventilator 11/08/24 13:21 0 Vital signs, stable ,afebrile. Pulse Oximetry reflects adequate oxygenation FiO2 30% General: well developed, well nourished. Awake , in no acute distress . Skin: Warm, dry, no pallor, no rash or petechiae. HEENT: Atraumatic, normocephalic, EOMI, anicteric sclera B; pink conjunctiva; PERRLA, normal oropharynx, moist oral and nasal mucosa. Tympanic membrane , nose , throat clear. Neck: Trachea midline. Supple, full range of motion, no JVD, bruit , hepatojugular reflex , lymphadenopathy or masses, or other lesions Cardiac: Regular rhythm, regular rate no murmurs, rubs, or gallops. Normal S1 and S2, no S3 noticed. PMI is normal. Respiratory: Equal breath sounds bilaterally, no tachypnea; lungs clear to auscultation bilaterally, no wheezing ,rub or rales, or crackles. Chest wall is symmetric and without deformity. No signs of trauma. Chest wall is nontender. No signs of respiratory distress. Resonance is normal upon percussion bilaterally. Gastrointestinal: Abdomen symmetric, non-distended, soft, non-tender, normal bowel sounds x4 quadrant, normoactive, no hepatosplenomegaly , no masses , no bruit, no flank pain bilaterally. No voluntary guarding, rebound, or rigidity. No tenderness to percussion. No pulsatile masses. Equal femoral pulses. No Thomas's sign or McBurney point tenderness. Back; no CVA tenderness bilaterally, no deformities. Neck and back are without deformity as well. No tenderness noted on palpation of the spinous processes. Spinous processes are midline. Cervical, thoracic, and lumbar paraspinal muscles are not tender and are without spasm. : normal external genitalia, without lesions, swelling, masses or tenderness. Musculoskeletal: Extremities, normal range of motion, non-tender, muscle strength 5/5 x 4. Negative Homans signs bilaterally on lower extremity. Distal pulses full symmetrical, no clubbing, cyanosis , edema. Neurological: Awake, No motor or sensory deficit, deep tendon reflexes normal, cerebellar intact. Cranial nerves II-XII intact. Psych: Awake, Vascular: Good distal pulses, which are equal x4; capillary refill less than 2 seconds. Lymphatic, no lymphadenopathy. Result Diagram: 11/12/24 0210 11/12/24 1230 Coagulation Studies Laboratory Tests Test 11/12/24 02:10 11/12/24 09:25 11/12/24 15:30 Prothrombin Time 10.3 SECONDS (9.0-12.0) INR International Normalized Ratio 1.0 INR APTT (Heparin Protocol) 62 SECONDS (45-75) Activated Partial Thromboplast Time 54 SECONDS (22-32) H Coagulation Comments Problem\Assessment\Plan Problems/Diagnosis: (1) Cardiopulmonary arrest with successful resuscitation Assessment (/plan 1) Cardiopulmonary arrest with successful resuscitation Status: Acute Additional Plan # cardiac arrest VT/VF In cardiogenic shock On norepinephrine Managed by relief salesperson # NSTEMI Cardiology- Dr Juani Jackson has elected to do medical management Heparin drip will be continued for at least 48 hours # left lower lobe pulmonary embolism On heparin drip # respiratory failure On a ventilator managed by relief salesperson # likely bilateral pneumonia Complicated UTI # sepsis secondary to above Blood cultures are negative # transaminitis Secondary to shock liver continue monitor liver function tests # SHALOM possibly secondary to ATN Monitor daily metabolic panels Sepsis Screening Reassessment Date: Nov 12, 2024 Date of Service: Nov 12, 2024 Billing Provider: JIA MAZARIEGOS MD Common Visit Codes: [id number] INP/OBS CARE(HIGH) JIA MAZARIEGOS MD Nov 12, 2024 16:41
[2024-11-12] MEDS: potassium CL 10mEq/100ml bag 100 ML IV SCH (21:08)
[2024-11-12 22:06] LABS: APTT 49 SECONDS (22-32)
[2024-11-13] VITALS (24 sets, daily range): BP systolic 115–174; BP diastolic 47–76; PULSE 75–91; RESP 12–29; O2SAT 94–99
[2024-11-13] MEDS: vancomycin/NS 1 GM ADD-VANTAGE 250 ML IV SCH (02:11)
[2024-11-13 03:07] LABS: MEAN PLATELET VOLUME 8.6 FL (7.4-10.4); RED CELL DISTRIBUTION WIDTH 14.2 % (11.5-14.5)
[2024-11-13 03:11] LABS: INR 1.0 INR
[2024-11-13 03:19] LABS: CREATININE 1.20 MG/DL (0.60-1.10); PHOSPHORUS 3.0 MG/DL (2.3-4.5); TOTAL CARBON DIOXIDE 25.7 MMOL/L (24-32); eCRCL 52 ML/MIN; eGFR 59 ML/MIN
[2024-11-13] MEDS: MESSAGE TO NURSING IV ONE ×3 (04:39→15:50)
--- NOTE | 2024-11-13 12:13 | PROGRESS NOTE ---
Subjective Subjective Patient is seen and examined today. Extubated yesterday and doing well on 4 L of oxygen per minute via nasal cannula with a pulse oximeter reading of 96%. Reason for visit: Pulmonary critical care follow-up after cardiac arrest Reviewed: Care Plan, H&P, Labs, Radiology Daily Progress Note Exam Vitals Vital Signs Date Time Temp Pulse Resp B/P (MAP) Pulse Ox O2 Delivery O2 Flow Rate FiO2 11/13/24 12:00 99.5 91 12 156/59 (91) 95 Nasal Cannula 4.0 11/12/24 20:00 30 Result Diagram: 11/13/24 0215 11/13/24214 Exam HEENT examination: N/C/AT, PERRL Neck: Soft collar on. Supple with no jugular venous distention and no lymphadenopathy. Chest: Symmetric expansion bilaterally. Pulmonary: Clear to auscultation bilaterally with no wheezing no rales or rhonchi. Cardiovascular: Normal S1 and S2 without any S3-S4 gallop. Abdomen: Soft nontender no organomegaly. Extremities no cyanosis, no clubbing and no edema. Neurology: Interactive and tries to answer questions through verbalization. Results Coagulation Studies Laboratory Tests Test 11/12/24 21:25 11/13/24 02:15 11/13/24 08:40 Activated Partial Thromboplast Time 49 SECONDS (22-32) H Prothrombin Time 10.1 SECONDS (9.0-12.0) INR International Normalized Ratio 1.0 INR APTT (Heparin Protocol) 46 SECONDS (45-75) Coagulation Comments VTE VTE Risk Score VTE Risk Score Reference Ranges: Score 0-1 = Low Risk (Aggressive mobilization; early ambulation; no VTE prophylaxis required) Score 2: Moderate Risk (Intermittent/Pneumatic Compression Device OR Lovenox/Heparin/Coumadin) Score 3-4: High Risk (Intermittent/Pneumatic Compression Device AND Lovenox/Heparin/Coumadin) Score > or = 5: Highest Risk (Intermittent/Pneumatic Compression Device AND Lovenox/Heparin/Coumadin) Assessment/Plan Plan Status post Cardiac arrest, VT/VF Bilateral to 0 3 for 5 6th 2 rib fractures Completed targeted temperature monitoring utilizing the [employer]. Temperature goal was 36 C. Off pressors. NSTEMI: Originally transferred as a STEMI from [facility]. 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 ABG is on better side on today 11/13/2024: Continue vanco and Zosyn . Continue heparin drip Transaminitis, improving Due to to shock liver AST/ALT: 158/176 AST, ALT is improving SHALOM Serum creatinine is 1.20, BUN 29 We will continue to monitor CMP sepsis,poa UTI UA Is positive for uti procalcitonin,lactic acid is elevated Continue vanc ,zosyn Lactic acidosis Most likely due to cardiac arrest causing poor organ perfusion Now resolved. Hypokalemia&Hypophosphatemia Replace electrolytes per protocol Anemia Hemoglobin is 7.1 and hematocrit is 21.0 Gastrointestinal Off tube feedings after extubation. We will need bedside swallow eval to initiate tube feedings. H/O Code status: DNR Sedation/analgesia: P.r.n. Tylenol DVT Prophylaxis: Already on heparin drip Prophylaxis: Protonix Prognosis: Guarded Critical care time: 35 minutes. Expected Outcome/Goals Expected Outcomes/Goals: Meet minimum 75% estimated protein and energy needs with diet advancement, wt maintenance, bowel regularity, optimal skin integrity MAYLIN DACOSTA MD Nov 13, 2024 12:13
--- NOTE | 2024-11-13 14:44 | PROGRESS NOTE ---
Daily Progress Note Providers to CC Patient extubated, awake, may be responsive to some questions, generalized confused, on nasal cannula 3 L of oxygen, still coughing with sputum production greenish ~ Central Line/PICC still needed: Yes Gipson-Non Protocol Gipson Indications Met/Not Met: F/C Indications Met Antibiotic Timeout Antibiotic Ordered?: Yes MRSA Education MRSA Education Provided to pt: Yes Subjective As above Objective Vital Signs Date Time Temp Pulse Resp B/P (MAP) Pulse Ox O2 Delivery O2 Flow Rate FiO2 11/13/24 14:00 99.7 88 23 148/59 (88) 98 Nasal Cannula 4.0 11/12/24 20:00 30 Vital signs, stable ,afebrile. Pulse Oximetry reflects adequate oxygenation on 3 L oxygen nasal cannula General: well developed, well nourished. Awake , alert, and oriented x4, resting comfortably in the bed, in no acute distress . Skin: Warm, dry, no pallor, no rash or petechiae. HEENT: Atraumatic, normocephalic, EOMI, anicteric sclera B; pink conjunctiva; PERRLA, normal oropharynx, moist oral and nasal mucosa. Tympanic membrane , nose , throat clear. Neck: Trachea midline. Supple, full range of motion, no JVD, bruit , hepatojugular reflex , lymphadenopathy or masses, or other lesions Cardiac: Regular rhythm, regular rate no murmurs, rubs, or gallops. Normal S1 and S2, no S3 noticed. PMI is normal. Respiratory: Equal breath sounds bilaterally, no tachypnea; lungs clear to auscultation bilaterally, no wheezing , but multiple rales bilaterally noticed, Chest wall is symmetric and without deformity. No signs of trauma. Chest wall is nontender. No signs of respiratory distress. Resonance is normal upon percussion bilaterally. Gastrointestinal: Abdomen symmetric, non-distended, soft, non-tender, normal bowel sounds x4 quadrant, normoactive, no hepatosplenomegaly , no masses , no bruit, no flank pain bilaterally. No voluntary guarding, rebound, or rigidity. No tenderness to percussion. No pulsatile masses. Equal femoral pulses. No Thomas's sign or McBurney point tenderness. Back; no CVA tenderness bilaterally, no deformities. Neck and back are without deformity as well. No tenderness noted on palpation of the spinous processes. Spinous processes are midline. Cervical, thoracic, and lumbar paraspinal muscles are not tender and are without spasm. : normal external genitalia, without lesions, swelling, masses or tenderness. Musculoskeletal: Extremities, normal range of motion, non-tender, muscle strength 5/5 x 4. Negative Homans signs bilaterally on lower extremity. Distal pulses full symmetrical, no clubbing, cyanosis , edema. Neurological: Speech is clear, alert, and oriented x 4. No motor or sensory deficit, deep tendon reflexes normal, cerebellar intact. Cranial nerves II-XII intact. Psych: Alert and or appropriate, normal affect. Vascular: Good distal pulses, which are equal x4; capillary refill less than 2 seconds. Lymphatic, no lymphadenopathy. Result Diagram: 11/13/2421411/13/24214 Coagulation Studies Laboratory Tests Test 11/12/24 21:25 11/13/24 02:15 11/13/24 08:40 Activated Partial Thromboplast Time 49 SECONDS (22-32) H Prothrombin Time 10.1 SECONDS (9.0-12.0) INR International Normalized Ratio 1.0 INR APTT (Heparin Protocol) 46 SECONDS (45-75) Coagulation Comments Problem\Assessment\Plan Problems/Diagnosis: (1) Cardiopulmonary arrest with successful resuscitation Assessment (/plan 1) Cardiopulmonary arrest with successful resuscitation Status: Acute Additional Plan Extubated, on nasal cannula 3 L oxygen, Not on pressors Managed by hearing aid repairer # NSTEMI Cardiology- Dr Juani Jackson has elected to do medical management Heparin drip will be continued for at least 48 hours # left lower lobe pulmonary embolism On heparin drip # respiratory failure Mild improvement noticed bilateral pneumonia Complicated UTI # sepsis secondary to above Blood cultures are negative # transaminitis Secondary to shock liver continue monitor liver function tests # SHALOM possibly secondary to ATN Monitor daily metabolic panels Sepsis Screening Reassessment Date: Nov 13, 2024 Date of Service: Nov 13, 2024 Billing Provider: JIA MAZARIEGOS MD Common Visit Codes: [id number] INP/OBS CARE(HIGH) JIA MAZARIEGOS MD Nov 13, 2024 14:44
[2024-11-14] VITALS (24 sets, daily range): BP systolic 115–151; BP diastolic 60–78; PULSE 74–93; RESP 16–27; O2SAT 65–99
[2024-11-14] MEDS: COMMUNICATION ORDER 1 EA MISC MC ONE (01:02)
[2024-11-14] MEDS: VANCOMYCIN LEVEL IV ONE (01:03)
[2024-11-14 03:03] LABS: MEAN PLATELET VOLUME 8.1 FL (7.4-10.4); RED CELL DISTRIBUTION WIDTH 13.9 % (11.5-14.5)
[2024-11-14 03:20] LABS: CREATININE 1.11 MG/DL (0.60-1.10); PHOSPHORUS 3.0 MG/DL (2.3-4.5); TOTAL CARBON DIOXIDE 25.9 MMOL/L (24-32); eCRCL 57 ML/MIN; eGFR 64 ML/MIN
[2024-11-14] MEDS: MESSAGE TO NURSING IV ONE ×4 (06:05→22:59)
[2024-11-14] MEDS ORDERED: acetaminophen 1,000mg/100ml IV 100 ML IV PRN (12:10)
--- NOTE | 2024-11-14 12:37 | PROGRESS NOTE ---
Subjective Subjective Patient is seen and examined today. Extubated 48 hours ago and doing well on 3 L of oxygen per minute via nasal cannula with a pulse oximeter reading of 96%. Concern is about his weak cough and not being able to clear his upper airway putting him at risk for aspiration. Reason for visit: Pulmonary critical care follow-up after cardiac arrest Reviewed: Care Plan, H&P, Labs, Radiology Daily Progress Note Exam Vitals Vital Signs Date Time Temp Pulse Resp B/P (MAP) Pulse Ox O2 Delivery O2 Flow Rate FiO2 11/14/24 10:03 99.3 80 23 143/68 (93) 98 Nasal Cannula 2.0 11/12/24 20:00 30 Result Diagram: 11/14/24 0245 11/14/24 0245 Exam HEENT examination: N/C/AT, PERRL Neck: Soft collar on. Supple with no jugular venous distention and no lymphadenopathy. Chest: Symmetric expansion bilaterally. Pulmonary: Clear to auscultation bilaterally with no wheezing no rales or rhonchi. Cardiovascular: Normal S1 and S2 without any S3-S4 gallop. Abdomen: Soft nontender no organomegaly. Extremities no cyanosis, no clubbing and no edema. Neurology: Interactive and tries to answer questions through verbalization. Results Coagulation Studies Laboratory Tests Test 11/12/24 21:25 11/13/24 02:15 11/14/24 08:45 Activated Partial Thromboplast Time 49 SECONDS (22-32) H Prothrombin Time 10.1 SECONDS (9.0-12.0) INR International Normalized Ratio 1.0 INR APTT (Heparin Protocol) 49 SECONDS (45-75) Coagulation Comments VTE VTE Risk Score VTE Risk Score Reference Ranges: Score 0-1 = Low Risk (Aggressive mobilization; early ambulation; no VTE prophylaxis required) Score 2: Moderate Risk (Intermittent/Pneumatic Compression Device OR Lovenox/Heparin/Coumadin) Score 3-4: High Risk (Intermittent/Pneumatic Compression Device AND Lovenox/Heparin/Coumadin) Score > or = 5: Highest Risk (Intermittent/Pneumatic Compression Device AND Lovenox/Heparin/Coumadin) Assessment/Plan Plan Status post Cardiac arrest, VT/VF with no neurological sequelae. Bilateral to 0 3 for 5 6th 2 rib fractures Completed targeted temperature monitoring utilizing the [employer]. Temperature goal was 36 C. Off pressors. NSTEMI: Originally transferred as a STEMI from [facility]. 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 Acute hypoxemic respiratory failure Left lower lobe pulmonary embolism WBCs have trended down On heparin drip On vancomycin and Zosyn ABG is on better side on today 11/14/2024: Continue vanco and Zosyn . Continue heparin drip Transaminitis, resolved Due to to shock liver AST/ALT: SHALOM Serum creatinine is 1.11, BUN 24 We will continue to monitor CMP sepsis,poa UTI UA Is positive for uti procalcitonin,lactic acid is elevated Continue vanc ,zosyn Lactic acidosis Most likely due to cardiac arrest causing poor organ perfusion Now resolved. Hypokalemia&Hypophosphatemia: Resolved with replacement Replace electrolytes per protocol Anemia Hemoglobin is 7.0 and hematocrit is 20.9 Gastrointestinal Off tube feedings after extubation. We will need bedside swallow eval to initiate tube feedings. Insert [employer] in the interim and resume tube feedings and free water today Code status: DNR Sedation/analgesia: P.r.n. Tylenol DVT Prophylaxis: Already on heparin drip Prophylaxis: Protonix Prognosis: Guarded Critical care time: 35 minutes. Expected Outcome/Goals Expected Outcomes/Goals: Meet minimum 75% estimated protein and energy needs with diet advancement, wt maintenance, bowel regularity, optimal skin integrity MAYILN DACOSTA MD Nov 14, 2024 12:37
[2024-11-14] MEDS: acetaminophen 1,000mg/100ml IV 100 ML IV ONE (13:39)
--- NOTE | 2024-11-14 14:20 | RADIOLOGY REPORT ---
Exam: DI ABDOMEN,SINGLE VIEW(KUB) Indication: CORPAK PLACEMENT Comparison: None Technique: 2 radiographic views of the abdomen. Findings: Enteric catheter tip overlies the gastric antrum/ proximal duodenum. Nonobstructive bowel gas pattern noted. There is no definite evidence for pneumoperitoneum. No abnormal calcifications noted. Impression: Enteric catheter tip overlies the gastric antrum/ proximal duodenum.
[2024-11-14] MEDS: VANCOmycin 1250MG/NS 250ml Bag 250 ML IV SCH (14:59)
[2024-11-14] MEDS ORDERED: mag hydrox/Alum hydrox/simeth 30ml oral suspension CORPAK PRN (15:06)
[2024-11-14] MEDS ORDERED: acetaminophen 325mg/10.15ml oral unit dose solution CORPAK PRN (15:06)
[2024-11-14] MEDS ORDERED: magnesium hydroxide 30ml (MOM) UD suspension CORPAK PRN (15:07)
[2024-11-14] MEDS ORDERED: POTASSIUM CHLORIDE 20 MEQ/15 ML oral solution CORPAK SCH (15:07)
--- NOTE | 2024-11-14 15:22 | PROGRESS NOTE ---
Daily Progress Note Providers to CC Awake, nasal cannula 2 L of oxygen today ~ Central Line/PICC still needed: Yes Gipson-Non Protocol Gipson Indications Met/Not Met: F/C Indications Met Antibiotic Timeout Antibiotic Ordered?: Yes MRSA Education MRSA Education Provided to pt: Yes Subjective As above Objective Vital Signs Date Time Temp Pulse Resp B/P (MAP) Pulse Ox O2 Delivery O2 Flow Rate FiO2 11/14/24 10:03 99.3 80 23 143/68 (93) 98 Nasal Cannula 2.0 11/12/24 20:00 30 Vital signs, stable ,afebrile. Pulse Oximetry reflects adequate oxygenation on 2 L oxygen nasal cannula General: well developed, well nourished. Awake , in no acute distress . Skin: Warm, dry, no pallor, no rash or petechiae. HEENT: Atraumatic, normocephalic, EOMI, anicteric sclera B; pink conjunctiva; PERRLA, normal oropharynx, moist oral and nasal mucosa. Tympanic membrane , nose , throat clear. Neck: Trachea midline. Supple, full range of motion, no JVD, bruit , hepatojugular reflex , lymphadenopathy or masses, or other lesions Cardiac: Regular rhythm, regular rate no murmurs, rubs, or gallops. Normal S1 and S2, no S3 noticed. PMI is normal. Respiratory: Equal breath sounds bilaterally, no tachypnea; lungs clear to auscultation bilaterally, no wheezing ,rub or rales, or crackles. Chest wall is symmetric and without deformity. No signs of trauma. Chest wall is nontender. No signs of respiratory distress. Resonance is normal upon percussion bilaterally. Gastrointestinal: Abdomen symmetric, non-distended, soft, non-tender, normal bowel sounds x4 quadrant, normoactive, no hepatosplenomegaly , no masses , no bruit, no flank pain bilaterally. No voluntary guarding, rebound, or rigidity. No tenderness to percussion. No pulsatile masses. Equal femoral pulses. No Thomas's sign or McBurney point tenderness. Back; no CVA tenderness bilaterally, no deformities. Neck and back are without deformity as well. No tenderness noted on palpation of the spinous processes. Spinous processes are midline. Cervical, thoracic, and lumbar paraspinal muscles are not tender and are without spasm. : normal external genitalia, without lesions, swelling, masses or tenderness. Musculoskeletal: Extremities, normal range of motion, non-tender, muscle strength 5/5 x 4. Negative Homans signs bilaterally on lower extremity. Distal pulses full symmetrical, no clubbing, cyanosis , edema. Neurological: Awake, somnolent Psych: Alert , somnolent Vascular: Good distal pulses, which are equal x4; capillary refill less than 2 seconds. Lymphatic, no lymphadenopathy. Result Diagram: 11/14/24 0245 11/14/24 0245 Coagulation Studies Laboratory Tests Test 11/12/24 21:25 11/13/24 02:15 11/14/24 08:45 Activated Partial Thromboplast Time 49 SECONDS (22-32) H Prothrombin Time 10.1 SECONDS (9.0-12.0) INR International Normalized Ratio 1.0 INR APTT (Heparin Protocol) 49 SECONDS (45-75) Coagulation Comments Problem\Assessment\Plan Problems/Diagnosis: (1) Cardiopulmonary arrest with successful resuscitation Assessment (/plan 1) Cardiopulmonary arrest with successful resuscitation Status: Acute Additional Plan Extubated, on nasal cannula 2 L oxygen, Not on pressors Managed by a p manager # NSTEMI Cardiology- Dr Juani Jackson has elected to do medical management Heparin drip will be continued for at least 48 hours # left lower lobe pulmonary embolism On heparin drip # respiratory failure Mild improvement noticed bilateral pneumonia Complicated UTI # sepsis secondary to above Blood cultures are negative # transaminitis Secondary to shock liver continue monitor liver function tests # SHALOM possibly secondary to ATN Monitor daily metabolic panels Sepsis Screening Reassessment Date: Nov 14, 2024 Date of Service: Nov 14, 2024 Billing Provider: JIA MAZARIEGOS MD Common Visit Codes: [id number] INP/OBS CARE(HIGH) JIA MAZARIEGOS MD Nov 14, 2024 15:22
[2024-11-14 18:08] LABS: MEAN PLATELET VOLUME 8.0 FL (7.4-10.4); RED CELL DISTRIBUTION WIDTH 14.0 % (11.5-14.5)
[2024-11-14 18:22] LABS: CREATININE 1.17 MG/DL (0.60-1.10); TOTAL CARBON DIOXIDE 25.2 MMOL/L (24-32); eCRCL 54 ML/MIN; eGFR 61 ML/MIN
[2024-11-14] MEDS: psyllium seed 5.8 gm packet (sugar-free) CORPAK SCH (20:21)
[2024-11-14] MEDS: POTASSIUM CHLORIDE 20 MEQ/15 ML oral solution CORPAK SCH (20:21)
[2024-11-15] VITALS (17 sets, daily range): BP systolic 101–154; BP diastolic 46–77; PULSE 74–94; RESP 18–25; TEMP 98–98.9; O2SAT 93–99
[2024-11-15] MEDS: MESSAGE TO NURSING IV ONE ×3 (05:49→19:19)
--- NOTE | 2024-11-15 06:48 | PROGRESS NOTE ---
Progress Note Dictate Providers to CC ~ Progress Note: No new acute issues overnight Central Line/PICC still needed: Yes G[place]son Indications Met/Not Met: F/C Indications Met Antibiotic Ordered?: Yes Subjective Subjective Comfortable Objective Vitals Vital Signs Date Time Temp Pulse Resp B/P (MAP) Pulse Ox O2 Delivery O2 Flow Rate FiO2 11/15/24 06:08 99.7 88 20 151/66 (94) 98 Nasal Cannula 2.0 11/12/24 20:00 30 Lab Results: 11/14/24 1750 11/14/24 1750 Objective Heart: S1-2 reg Lungs: Ronchi at bases Abd: Soft, non-tender, BS (+) Ext: No edema Neuro Generalized weakness Coagulation Studies Laboratory Tests Test 11/12/24 21:25 11/13/24 02:15 11/15/24 04:15 Activated Partial Thromboplast Time 49 SECONDS (22-32) H Prothrombin Time 10.1 SECONDS (9.0-12.0) INR International Normalized Ratio 1.0 INR APTT (Heparin Protocol) 43 SECONDS (45-75) L Coagulation Comments Problem\Assessment\Plan Additional Plan 1-S/P Cardiac Arrest -Supportive TX 2-PE -Continue Heparin drip 3-Dysphagia -Unless code status in change to comfort care, will need PEG Anticipate transfer soon A Jimbo Sepsis Screening Reassessment Date: Nov 15, 2024 FERNANDA DALY MD Nov 15, 2024 06:48
[2024-11-15 08:11] LABS: MEAN PLATELET VOLUME 8.8 FL (7.4-10.4); RED CELL DISTRIBUTION WIDTH 14.1 % (11.5-14.5)
[2024-11-15 08:25] LABS: CREATININE 1.11 MG/DL (0.60-1.10); PHOSPHORUS 2.7 MG/DL (2.3-4.5); TOTAL CARBON DIOXIDE 22.3 MMOL/L (24-32); eCRCL 57 ML/MIN; eGFR 64 ML/MIN
[2024-11-15] MEDS ORDERED: iron sucrose complex injection 100 MG in normal saline 100ml IV soln 95 ML IV SCH (10:00)
[2024-11-15] MEDS ORDERED: iron sucrose complex injection 100 MG in normal saline 100ml IV soln 100 ML IV SCH (10:26)
[2024-11-15] MEDS: iron sucrose complex injection 100 MG in normal saline 100ml IV soln 100 ML IV SCH (11:49)
--- NOTE | 2024-11-15 18:27 | PROGRESS NOTE ---
Progress Note Cardiology Providers to CC ~ Subjective Subjective Patient is now extubated. He has been transferred out of the ICU to the surgical unit. Not currently on telemetry. No reoccurrence of ventricular arrhythmias. Has been hemodynamically stable. Remains on a heparin drip. In mittens for restraints. Confused. Patient is quite anemic today. Per nursing no known bleeding episodes. Objective Result Diagram: 11/15/24 0500 11/15/24 0500 Objective General: Alert. Awake. Confused. Neck: Supple. Normal range of motion. No JVD Respiratory: Lungs are clear to auscultation bilaterally. No respiratory distress. Chest: Normal shape and size. No accessory muscle use. Cardiovascular: Regular rate and rhythm. S1-S2. No murmur, gallop, rub. Gastrointestinal: Abdomen is soft. Nontender to palpation. Extremities: No lower extremity edema, cyanosis or clubbing. Skin: Normal color. Warm and dry. Coagulation Studies Laboratory Tests Test 11/12/24 21:25 11/13/24 02:15 11/15/24 11:10 Activated Partial Thromboplast Time 49 SECONDS (22-32) H Prothrombin Time 10.1 SECONDS (9.0-12.0) INR International Normalized Ratio 1.0 INR APTT (Heparin Protocol) 60 SECONDS (45-75) Coagulation Comments Problem\Assessment\Plan Additional Plan Cardiac arrest VT/VF Maybe secondary to pulmonary embolism. --weaned off multiple pressors now on only levo. 11/10/24: Remains on TTM. Remains on Levophed. Plan to continue to monitor. When extubated/good neurologic outcome we will discuss further. Discussed with patient's family who are aware and in agreement with this plan at this time. 11/11/24: Off ttm. remains on levo. 11/15/24: now extubated. transferred out of icu to the surgical unit. and daughter are at bedside. Patient has dysphagia preventing him from swallowing. Continues to have an NG-tube. Was recommended for PEG tube placement however family is reluctant and are going to have a family meeting about this. There has been no reoccurrence of arrhythmias. Recommend medical management. STEMI ruled out --per [employer] [facility] no stemi on ekg nstemi --no LV wma on TTE --trop 196, 696, 1468, 2002, 1644 --cont heparin for at least 48 hours from cv standpoint. 11/15/24: He remains on a heparin drip. Heparin drip is not required from a cardiac standpoint. Given his significant anemia I would not proceed with aspirin or Plavix as he will need oral anticoagulation for his pulmonary embolism. Discussed with the family. Recommend continued medical management. I will start him on metoprolol. Family states that patient was going to have a repeat echocardiogram. This is reasonable. I do not see when ordered. I will go ahead and put an order in to evaluate RV and LV function. lll PE --on heparin. --we will need oral anticoagulation on discharge. 11/15/24: Patient continues on a heparin drip for now. Transitioned to oral anticoagulation timing per the hospitalist service. Marty --significantly improved. Transaminitis --resolved. Significant anemia Family states they are okay with blood transfusion. Recommend monitoring for signs and symptoms of bleeding. Urinary tract infection Pneumonia --antibiotic management per hospitalist. Case discussed with Dr. Prosper Jackson. In agreement with this plan. Supervising Physician: REBA Henley NP Nov 15, 2024 18:27
[2024-11-15 18:44] LABS: MEAN PLATELET VOLUME 8.3 FL (7.4-10.4); RED CELL DISTRIBUTION WIDTH 14.6 % (11.5-14.5)
--- NOTE | 2024-11-15 19:23 | PROGRESS NOTE ---
Daily Progress Note Providers to CC ~ Antibiotic Timeout Antibiotic Ordered?: Yes Subjective Patient was seen in CICU, patient currently on artificial nutrition responded partially to verbal commands. Objective Vital Signs Date Time Temp Pulse Resp B/P (MAP) Pulse Ox O2 Delivery O2 Flow Rate FiO2 11/15/24 15:30 98.0 74 19 101/69 (80) 98 Nasal Cannula 2.0 11/12/24 20:00 30 Result Diagram: 11/15/24 1813 11/15/24 0500 General-patient not in any acute distress, awake ill-appearing HEENT-atraumatic normocephalic, neck supple without elevated JVD, no thyromegaly No lymphadenopathy bilaterally. Eyes-no icterus or pallor seen in eyes Chest-decreased breath to auscultation bilaterally, . Heart-S1-S2 normal, regular heart rate no murmur Abdomen bowel sounds positive on auscultation, soft nondistended nontender no guarding, no rigidity Neurology-grossly intact, nonfocal , awake Extremity- no pedal edema Coagulation Studies Laboratory Tests Test 11/12/24 21:25 11/13/24 02:15 11/15/24 18:13 Activated Partial Thromboplast Time 49 SECONDS (22-32) H Prothrombin Time 10.1 SECONDS (9.0-12.0) INR International Normalized Ratio 1.0 INR APTT (Heparin Protocol) 79 SECONDS (45-75) H Coagulation Comments Problem\Assessment\Plan Problems/Diagnosis: (1) Cardiopulmonary arrest with successful resuscitation Assessment (/plan 1) Cardiopulmonary arrest with successful resuscitation Status: Acute Additional Plan Extubated, on nasal cannula 2 L oxygen, Not on pressors Managed by sql ssrs ssis developer # NSTEMI Cardiology- Dr Juani Jackson has elected to do medical management Heparin drip will be continued for at least 48 hours # left lower lobe pulmonary embolism On heparin drip # respiratory failure Mild improvement noticed bilateral pneumonia Complicated UTI # sepsis secondary to above Blood cultures are negative # transaminitis Secondary to shock liver continue monitor liver function tests # HSALOM possibly secondary to ATN Monitor daily metabolic panels Patient's current condition is guarded we will continue to follow patient along with the sql ssrs ssis developer team Date of Service: Nov 15, 2024 Billing Provider: GINA HUDDLESTON MD Common Visit Codes: [id number] INP/OBS CARE(MOD) GINA HUDDLESTON MD Nov 15, 2024 19:23
[2024-11-15] MEDS: metoprolol tartrate 12.5mg (1/2 tablet) PO SCH (21:28)
[2024-11-16] VITALS (8 sets, daily range): BP systolic 112–152; BP diastolic 65–72; PULSE 74–98; RESP 18–21; TEMP 97.2–98.9; O2SAT 95–99
[2024-11-16] MEDS ORDERED: VANCOMYCIN LEVEL IV ONE (00:30)
[2024-11-16] MEDS: MESSAGE TO NURSING IV ONE ×2 (03:19→12:16)
[2024-11-16] MEDS: metoprolol tartrate 12.5mg (1/2 tablet) CORPAK SCH (09:56)
[2024-11-16 11:33] LABS: MEAN PLATELET VOLUME 7.3 FL (7.4-10.4); RED CELL DISTRIBUTION WIDTH 15.1 % (11.5-14.5)
[2024-11-16 11:46] LABS: CREATININE 1.01 MG/DL (0.60-1.10); TOTAL CARBON DIOXIDE 23.5 MMOL/L (24-32); eCRCL 62 ML/MIN; eGFR 72 ML/MIN
--- NOTE | 2024-11-16 11:57 | PROGRESS NOTE ---
Progress Note Cardiology Providers to CC ~ Subjective Subjective Patient is awake. Remains in restraints. Not on telemetry. Plans to be transferred to the telemetry unit for closer monitoring. Underwent repeat echocardiogram today. RV function has improved. Objective Result Diagram: 11/16/24 1125 11/16/24 1125 Objective General: Alert. Awake. Confused. No distress noted. Neck: Supple. Normal range of motion. No JVD Respiratory: Lungs are clear to auscultation bilaterally. No respiratory distress. Chest: Normal shape and size. No accessory muscle use. Cardiovascular: Regular rate and rhythm. S1-S2. No murmur, gallop, rub. Gastrointestinal: Abdomen is soft. Nontender to palpation. Extremities: No lower extremity edema, cyanosis or clubbing. Skin: Normal color. Warm and dry. Coagulation Studies Laboratory Tests Test 11/12/24 21:25 11/13/24 02:15 11/16/24 08:52 Activated Partial Thromboplast Time 49 SECONDS (22-32) H Prothrombin Time 10.1 SECONDS (9.0-12.0) INR International Normalized Ratio 1.0 INR APTT (Heparin Protocol) 59 SECONDS (45-75) Coagulation Comments Problem\Assessment\Plan Additional Plan Cardiac arrest VT/VF Maybe secondary to pulmonary embolism. --weaned off multiple pressors now on only levo. 11/10/24: Remains on TTM. Remains on Levophed. Plan to continue to monitor. When extubated/good neurologic outcome we will discuss further. Discussed with patient's family who are aware and in agreement with this plan at this time. 11/11/24: Off ttm. remains on levo. 11/15/24: now extubated. transferred out of icu to the surgical unit. and daughter are at bedside. Patient has dysphagia preventing him from swallowing. Continues to have an NG-tube. Was recommended for PEG tube placement however family is reluctant and are going to have a family meeting about this. There has been no reoccurrence of arrhythmias. Recommend medical management. STEMI ruled out --per [employer] cardiology no stemi on ekg nstemi --no LV wma on TTE --trop 196, 696, 1468, 2002, 1644 --cont heparin for at least 48 hours from cv standpoint. 11/15/24: He remains on a heparin drip. Heparin drip is not required from a cardiac standpoint. Given his significant anemia I would not proceed with aspirin or Plavix as he will need oral anticoagulation for his pulmonary embolism. Discussed with the family. Recommend continued medical management. I will start him on metoprolol. Family states that patient was going to have a repeat echocardiogram. This is reasonable. I do not see when ordered. I will go ahead and put an order in to evaluate RV and LV function. 11/16/24: Repeat echocardiogram demonstrates preserved LVEF. No wall motion abnormalities. RV minimally dilated with normal function. Echocardiogram has significantly improved. Recommend continued medical management as above. lll PE --on heparin. --we will need oral anticoagulation on discharge. 11/15/24: Patient continues on a heparin drip for now. Transitioned to oral anticoagulation timing per the hospitalist service. Marty --significantly improved. Transaminitis --resolved. Significant anemia Family states they are okay with blood transfusion. Recommend monitoring for signs and symptoms of bleeding. 11/16/24: Patient continues to have significant anemia. There is no known source of the bleeding. Management per hospitalist service. Urinary tract infection Pneumonia --antibiotic management per hospitalist. Hyperkalemia Hypernatremia Potassium is 5.3 and sodium 147. --management per the hospitalist service. Case discussed with Dr. Prosper Jackson. In agreement with this plan. For any further cardiology needs please contact Dr. Quiros directly. Otherwise, I will return on . Supervising Physician: REBA Henley NP Nov 16, 2024 11:57
--- NOTE | 2024-11-16 17:28 | PROGRESS NOTE ---
Daily Progress Note Providers to CC ~ Antibiotic Timeout Antibiotic Ordered?: No Subjective Patient was seen in surgical floor 1st and then transferred to PCU . he is unable to communicate his needs. Currently on TPN for nutrition and on heparin drip for pulmonary embolism. Low hemoglobin and hematocrit noticed today ordered 1 unit of packed RBC transfusion. Objective Vital Signs Date Time Temp Pulse Resp B/P (MAP) Pulse Ox O2 Delivery O2 Flow Rate FiO2 11/16/24 16:30 20 11/16/24 14:20 77 11/16/24 14:00 98 Nasal Cannula 2.0 11/16/24 12:47 98.0 129/65 (86) 11/16/24 08:40 25 Result Diagram: 11/16/24 1125 11/16/24 112 General-patient not in any acute distress, awake ill-appearing, TPN feeding tube in place HEENT-atraumatic normocephalic, neck supple without elevated JVD, no thyromegaly No lymphadenopathy bilaterally. Eyes-no icterus or pallor seen in eyes Chest-decreased breath to auscultation bilaterally, . Heart-S1-S2 normal, regular heart rate no murmur Abdomen bowel sounds positive on auscultation, soft nondistended nontender no guarding, no rigidity Neurology-grossly intact, nonfocal , awake signs of dementia present Extremity- one plus pedal edema Coagulation Studies Laboratory Tests Test 11/12/24 21:25 11/13/24 02:15 11/16/24 15:09 Activated Partial Thromboplast Time 49 SECONDS (22-32) H Prothrombin Time 10.1 SECONDS (9.0-12.0) INR International Normalized Ratio 1.0 INR APTT (Heparin Protocol) 27 SECONDS (45-75) L Coagulation Comments Problem\Assessment\Plan Problems/Diagnosis: (1) Cardiopulmonary arrest with successful resuscitation 1) Cardiopulmonary arrest with successful resuscitation Extubated, on nasal cannula 2 L oxygen and saturating well Not on pressors # NSTEMI Cardiology- Dr Juani Jackson has elected to do medical management We will stop Heparin drip and start patient on Eliquis # left lower lobe pulmonary embolism On oral anti coagulation heparin drip # respiratory failure bilateral pneumonia- Diffuse bilateral ground-glass opacities and interlobular septal thickening. Bilateral lower lobe opacities in CT scan # Complicated UTI # Acute bilateral rib fractures.Acute fractures of the right 2nd, 3rd, 4th, 5th, 6th anterior ribs and acute fractures of the left 2nd, 3rd, 4th, 5th and 6 anterior ribs. # sepsis secondary to pneumonia Blood cultures are negative # transaminitis Secondary to shock liver continue monitor liver function tests # SHALOM possibly secondary to ATN Monitor daily metabolic panels # low hemoglobin and hematocrit 1 unit of packed RBC transfusion ordered today. 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 We will plan for family meeting to discuss patient's current updated medical condition and goals of care for the patient. Patient needs repeat bedside swallowing studies in AM . Date of Service: Nov 16, 2024 Billing Provider: GINA HUDDLESTON MD Common Visit Codes: [id number] INP/OBS CARE(HIGH) GINA HUDDLESTON MD Nov 16, 2024 17:28
--- NOTE | 2024-11-16 18:36 | RADIOLOGY REPORT ---
Indication: recent fall Technique: DI HIP UNILATERAL 2 VIEWSHIP 2VWS Comparison: None FINDINGS/IMPRESSION: No radiographic evidence for acute fracture or dislocation. Mtfe-[id number]-aymikfse degenerative changes bi lateral hips. Gipson catheter.
[2024-11-17] VITALS (13 sets, daily range): BP systolic 140–171; BP diastolic 58–76; PULSE 74–89; RESP 16–26; TEMP 97.3–100.1; O2SAT 92–99
[2024-11-17] MEDS: HYDROcodone/acetaminophen 5mg/325mg tablet PO ONE (02:53)
[2024-11-17 07:59] LABS: MEAN PLATELET VOLUME 7.8 FL (7.4-10.4); RED CELL DISTRIBUTION WIDTH 15.7 % (11.5-14.5)
[2024-11-17 08:15] LABS: CREATININE 0.95 MG/DL (0.60-1.10); TOTAL CARBON DIOXIDE 23.7 MMOL/L (24-32); eCRCL 66 ML/MIN; eGFR 77 ML/MIN
[2024-11-17] MEDS: scopolamine 1MG/72H patch 1 PATCH PATCH.TD.3 TD SCH (08:19)
--- NOTE | 2024-11-17 08:19 | RADIOLOGY REPORT ---
EXAM: DI CHEST,SINGLE VIEW Indication: possible aspiration Technique: Single frontal view of the chest was obtained Comparison: DI CHEST,SINGLE VIEW on DOS: 11/12/24, DI CHEST,SINGLE VIEW on DOS: 11/11/24, DI CHEST,SINGLE VIEW on DOS: 11/10/24, DI CHEST,SINGLE VIEW on DOS: 11/09/24, DI CHEST,SINGLE VIEW on DOS: 11/08/24 FINDINGS: Lines and Tubes: Weighted tip feeding tube projects over the distal stomach. Lungs: No focal consolidation. Pulmonary edema. Low lung volumes. Pleura: Small left pleural effusion. No pneumothorax. Cardiomediastinal contours: Cardiomegaly. Bones: No acute osseous abnormality. IMPRESSION: Cardiomegaly with pulmonary edema.
[2024-11-17] MEDS: ondansetron/PF 4mg/2ml inj IV PRN (13:04)
[2024-11-17] MEDS ORDERED: morphine ORAL 5MG/0.25 ML (Conc. morphine) oral syringe PO PRN (15:15)
[2024-11-17] MEDS: morphine 10mg/0.5ml (conc. morphine) oral syringe PO PRN (17:24)
[2024-11-17 19:52] LABS: OCCULT BLOOD STOOL NEGATIVE (Neg)
--- NOTE | 2024-11-17 21:16 | PROGRESS NOTE ---
Daily Progress Note Providers to CC ~ Antibiotic Timeout Antibiotic Ordered?: No Subjective Patient was seen in presence of case resource manager, nursing staff, patient's daughter and patient's who is a POA for the patient. Patient's all labs diagnostic workup discussed in detail. Updated them about patient's current medical status. Open and honest dialogue regarding poor prognosis, burden , adverse effects and potential complications of TPN discussed in detail with patients family members.All questions and concerns answered to the best of my professional medical knowledge. Due to low hemoglobin and hematocrit 1 unit of packed RBC transfusion ordered but after the family meeting family members decided to go for hospice and comfort care. Counseling done regarding hospice and comfort care and case resource manager Elaine we will contact hospice care team. Code status changed to comfort care and orders change today Objective Vital Signs Date Time Temp Pulse Resp B/P (MAP) Pulse Ox O2 Delivery O2 Flow Rate FiO2 11/17/24 17:24 18 11/17/24 15:00 97.5 84 140/76 (97) 92 Nasal Cannula 2.0 11/17/24 07:40 28 Result Diagram: 11/17/24 0723 11/17/24 0723 General-patient is ill-appearing, TPN feeding tube in place HEENT-atraumatic normocephalic, neck supple without elevated JVD, no thyromegaly No lymphadenopathy bilaterally. Eyes-no icterus or pallor seen in eyes Chest-decreased breath to auscultation bilaterally, . Coarse breath sounds all over the lungs Heart-S1-S2 normal, regular heart rate no murmur Abdomen bowel sounds positive on auscultation, soft nondistended nontender no guarding, no rigidity Neurology-grossly intact, nonfocal , awake signs of dementia present Extremity- one plus pedal edema in upper extremity also edematous Coagulation Studies Laboratory Tests Test 11/12/24 21:25 11/13/24 02:15 11/16/24 15:09 Activated Partial Thromboplast Time 49 SECONDS (22-32) H Prothrombin Time 10.1 SECONDS (9.0-12.0) INR International Normalized Ratio 1.0 INR APTT (Heparin Protocol) 27 SECONDS (45-75) L Coagulation Comments Problem\Assessment\Plan Problems/Diagnosis: (1) Cardiopulmonary arrest with successful resuscitation 1) Cardiopulmonary arrest with successful resuscitation # NSTEMI # left lower lobe pulmonary embolism # respiratory failure bilateral pneumonia- # Complicated UTI # Acute bilateral rib fractures.Acute fractures of the right 2nd, 3rd, 4th, 5th, 6th anterior ribs and acute fractures of the left 2nd, 3rd, 4th, 5th and 6 anterior ribs. # sepsis secondary to pneumonia # transaminitis # SHALOM possibly secondary to ATN # low hemoglobin and hematocrit 1 unit of packed RBC transfusion ordered today. Patient was seen in presence of case resource manager, nursing staff, patient's daughter and patient's who is a POA for the patient. Patient's all labs diagnostic workup discussed in detail. Updated them about patient's current medical status. Open and honest dialogue regarding poor prognosis, burden , adverse effects and potential complications of TPN discussed in detail with patients family members.All questions and concerns answered to the best of my professional medical knowledge. Due to low hemoglobin and hematocrit 1 unit of packed RBC transfusion ordered but after the family meeting family members decided to go for hospice and comfort care. Counseling done regarding hospice and comfort care and case resource manager Elaine we will contact hospice care team. 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 Date of Service: Nov 17, 2024 Billing Provider: GINA HUDDLESTON MD Common Visit Codes: [id number] INP/OBS CARE(HIGH) Secondary Visit Codes: [id number] CARE PLAN 30 MINUTES GINA HUDDLESTON MD Nov 17, 2024 21:16
[2024-11-17] MEDS: acetaminophen 1,000mg/100ml IV 100 ML IV ONE (21:17)
[2024-11-18 06:00] VITALS: BP 173/67; PULSE 92; RESP 24; TEMP 99.7; O2SAT 87
[2024-11-18 07:35] VITALS: BP 160/82; PULSE 90; TEMP 98.3; O2SAT 93
[2024-11-18 08:00] VITALS: RESP 24; O2SAT 93
[2024-11-18 17:09] VITALS: RESP 20
--- NOTE | 2024-11-18 18:01 | CARDIOLOGY REPORT ---
APPROVED REPORT EXAM: Limited 2D, Doppler, and color-flow Echocardiogram. Patient Location: 357 B Blood Pressure: 134/68 mmHg Heart Rate: 89 bpm Rhythm: PACED w/UNDERLYING ATRIAL FIBRILLATION Indications MYOCARDIAL INFARCTION S/P L. LOWER LOBE PULMONARY EMBOLISM S/P CPR Conventional Underwriter: Deejay Jackson MD (consult) Previous echo: 11/08/24 [facility] (EF 55-60%, mod LVH, severe RVE w/ severely reduced function, trace MR, m ild TR) 2D Dimensions RVDd 4.1 cm IVSd 1.5 (0.7-1.1cm) LVDd 4.4 cm PWd 1.5 (0.7-1.1cm) IVSs 1.7 (0.8-1.2cm) LVDs 2.9 (2.5-4.0cm) PWs 1.7 (0.8-1.2cm) LVEF(%) 64.5 (>50%) FS (%) 35.0 % SV 56.8 ml CO 5.4 L/min M-Mode Dimensions Left Atrium(MM) 4.41 (2.5-4.0cm) Aortic Root 3.30 (2.2-3.7cm) Aortic Cusp Exc 2.31 (1.5-2.0cm) Aortic Valve AoV Peak Marito. 170.3 cm/s AoV VTI 33.8 cm AO Peak GR. 11.6 mmHg AO Mean GR. 7 mmHg Tricuspid Valve RAP ESTIMATE 10 mmHg TR Peak Gr. 28 mmHg RVSP 38 mmHg LEFT VENTRICLE Normal LV size and function. Moderate concentric hypertrophy. LVEF is 60-65%. RIGHT VENTRICLE RA size is mildly dilated and function appears normal, significantly improved from echo on 11/08/24. ? Leadless pacemaker visualized in the RV apex. RVSP is estimated at 38 mmHg. ATRIA LA appears at least mildly dilated. RA appears mildly dilated. AORTIC VALVE Trileaflet AV appears mildly sclerotic without stenosis or insufficiency. MITRAL VALVE Mild MV annular calcification without stenosis. Trace regurgitation. TRICUSPID VALVE TV appears structurally normal with trace regurgitation. PULMONIC VALVE Normal PV without stenosis, physiologic insufficiency. GREAT VESSELS Aortic root is normal in size. PERICARDIUM Normal pericardium. No effusion. Pleural effusion is present. Other Information Study Quality: Adequate
--- NOTE | 2024-11-18 20:08 | PROGRESS NOTE ---
Daily Progress Note Providers to CC ~ Antibiotic Timeout Antibiotic Ordered?: No Subjective Patient is currently on hospice care declined since yesterday having gurgling sound due to secretions. Family members present at bedside . Further counseling done regarding hospice care Objective Vital Signs Date Time Temp Pulse Resp B/P (MAP) Pulse Ox O2 Delivery O2 Flow Rate FiO2 11/18/24 17:09 20 11/18/24 08:00 93 Nasal Cannula 2.0 11/18/24 07:35 98.3 90 160/82 (108) 11/17/24 07:40 28 Result Diagram: 11/17/24 0723 11/17/24722 General-patient is ill-appearing, lethargic not responding to verbal commends HEENT-atraumatic normocephalic, neck supple without elevated JVD, Eyes-no icterus or pallor seen in eyes, sluggish pupillary reaction to light Chest-decreased breath to auscultation bilaterally, . Coarse breath sounds all over the lungs Heart-S1-S2 normal, regular heart rate no murmur Abdomen diminished bowel sounds positive on auscultation, soft nondistended nontender no guarding, no rigidity Extremity- extremities edematous unable to lift any of the extremities Coagulation Studies Laboratory Tests Test 11/12/24 21:25 11/13/24 02:15 11/16/24 15:09 Activated Partial Thromboplast Time 49 SECONDS (22-32) H Prothrombin Time 10.1 SECONDS (9.0-12.0) INR International Normalized Ratio 1.0 INR APTT (Heparin Protocol) 27 SECONDS (45-75) L Coagulation Comments Problem\Assessment\Plan Problems/Diagnosis: (1) Cardiopulmonary arrest with successful resuscitation 1) Cardiopulmonary arrest with successful resuscitation # NSTEMI # left lower lobe pulmonary embolism # respiratory failure bilateral pneumonia- # Complicated UTI # Acute bilateral rib fractures.Acute fractures of the right 2nd, 3rd, 4th, 5th, 6th anterior ribs and acute fractures of the left 2nd, 3rd, 4th, 5th and 6 anterior ribs. # sepsis secondary to pneumonia # transaminitis # SHALOM possibly secondary to ATN # low hemoglobin and hematocrit 1 unit of packed RBC transfusion ordered today. 11/17/24-Patient was seen in presence of comp field case manager, nursing staff, patient's daughter and patient's who is a POA for the patient. Patient's all labs diagnostic workup discussed in detail. Updated them about patient's current medical status. Open and honest dialogue regarding poor prognosis, burden , adverse effects and potential complications of TPN discussed in detail with patients family members.All questions and concerns answered to the best of my professional medical knowledge. Due to low hemoglobin and hematocrit 1 unit of packed RBC transfusion ordered but after the family meeting family members decided to go for hospice and comfort care. Counseling done regarding hospice and comfort care and comp field case manager Elaine we will contact hospice care team. Code status changed to comfort care and orders change today 11/18/24-Patient is currently on hospice care declined since yesterday having gurgling sound due to secretions. Family members present at bedside . Further counseling done regarding hospice care Patient's prognosis very poor . Patient is currently on hospice care Date of Service: Nov 18, 2024 Billing Provider: GINA HUDDLESTON MD Common Visit Codes: [id number] INP/OBS CARE(MOD) GINA HUDDLESTON MD Nov 18, 2024 20:08
--- NOTE | 2024-11-24 17:46 | DISCHARGE SUMMARY ---
Discharge Summary Providers to CC ~ Discharge Summary Admission Diagnosis: VFib/V-tach arrest, STEMI, cardiogenic shock Hospital Course DATE OF ADMISSION: November 08, 2024 DATE OF DISCHARGE: November 18, 2024 Discharge Diagnosis\Comment: # NSTEMI # left lower lobe pulmonary embolism # respiratory failure bilateral pneumonia #Cardiopulmonary arrest with successful resuscitation # Complicated UTI # Acute bilateral rib fractures.Acute fractures of the right 2nd, 3rd, 4th, 5th, 6th anterior ribs and acute fractures of the left 2nd, 3rd, 4th, 5th and 6 anterior ribs. # sepsis secondary to pneumonia # transaminitis # SHALOM possibly secondary to ATN # anemia Operations\Procedures: None Consultants: Dr Cary Jackson Complications: None Condition on DC: Discharge Summary: This is a 74-year-old male who was taking a [facility] for a STEMI and had a cardiac arrest in route and [place] was achieved- there were no rooms at the cardiac catheterization lab in [facility] and the patient was transferred to [facility] where the patient had another cardiac arrest and [place] was obtained. The patient has a CTA of the chest and there was a pulmonary embo lism in the left lower lobe the patient is on heparin drip. The patient is intubated on a ventilator and has a cardiogenic shock in his been on multiple pressors currently is on norepinephrine. 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 ) Cardiopulmonary arrest with successful resuscitation # NSTEMI # left lower lobe pulmonary embolism # respiratory failure bilateral pneumonia- # Complicated UTI # Acute bilateral rib fractures.Acute fractures of the right 2nd, 3rd, 4th, 5th, 6th anterior ribs and acute fractures of the left 2nd, 3rd, 4th, 5th and 6 anterior ribs. # sepsis secondary to pneumonia # transaminitis # SHALOM possibly secondary to ATN # low hemoglobin and hematocrit 1 unit of packed RBC transfusion ordered today. 11/17/24-Patient was seen in presence of case maker, nursing staff, patient's daughter and patient's who is a POA for the patient. Patient's all labs diagnostic workup discussed in detail. Updated them about patient's current medical status. Open and honest dialogue regarding poor prognosis, burden , adverse effects and potential complications of TPN discussed in detail with patients family members.All questions and concerns answered to the best of my professional medical knowledge. Due to low hemoglobin and hematocrit 1 unit of packed RBC transfusion ordered but after the family meeting family members decided to go for hospice and comfort care. Counseling done regarding hospice and comfort care and case maker Elaine we will contact hospice care team. Code status changed to comfort care and orders change today 11/18/24-Patient is currently on hospice care declined since yesterday having gurgling sound due to secretions. Family members present at bedside . Further counseling done regarding hospice care General-patient is ill-appearing, lethargic not responding to verbal commends HEENT-atraumatic normocephalic, neck supple without elevated JVD, Eyes-no icterus or pallor seen in eyes, sluggish pupillary reaction to light Chest-decreased breath to auscultation bilaterally, . Coarse breath sounds all over the lungs Heart-S1-S2 normal, regular heart rate no murmur Abdomen diminished bowel sounds positive on auscultation, soft nondistended nontender no guarding, no rigidity Extremity- extremities edematous unable to lift any of the extremities Patient's condition decline more and he on November 18, 2024 *Problems/Diagnosis: (1) Cardiopulmonary arrest with successful resuscitation Status: Acute Total Time Spent on D/C: Up to 30 Minutes Date of Service: Nov 18, 2024 Billing Provider: GINA HUDDLESTON MD Common Visit Codes: 47260-KRV/OBS DISCH DAY <30MIN GINA HUDDLESTON MD Nov 24, 2024 17:45
== END 2024-11-18 20:10 | DRG 870 ==
LOC: ER 09:02 → EDBD 09:02 → ED HOLD 15:08 → CICU 2S 15:47 → SUR 3N 11-15 14:21 → PCU 3S 11-16 12:52 → SUR 3N 11-17 23:06
PROVIDERS: ADMIT Internal Medicine Critical Care Medicine; ATTEND Internal Medicine Critical Care Medicine
PROC: 5A12012 Performance of Cardiac Output, Single, Manual (ICD-10-PCS; principal; 2024-11-08)
PROC: 0BH17EZ Insertion of Endotracheal Airway into Trachea, Via Natural or Artificial Opening (ICD-10-PCS; 2024-11-08)
PROC: 5A1955Z Respiratory Ventilation, Greater than 96 Consecutive Hours (ICD-10-PCS; 2024-11-08)
PROC: 30233N1 Transfusion of Nonautologous Red Blood Cells into Peripheral Vein, Percutaneous Approach (ICD-10-PCS; 2024-11-17)
DX: A41.9 Sepsis, unspecified organism (principal); I21.4 Non-ST elevation (NSTEMI) myocardial infarction; I26.99 Other pulmonary embolism without acute cor pulmonale; N17.0 Acute kidney failure with tubular necrosis; J18.9 Pneumonia, unspecified organism; J96.01 Acute respiratory failure with hypoxia; K72.00 Acute and subacute hepatic failure without coma; S22.43XA Multiple fractures of ribs, bilateral, initial encounter for closed fracture; N39.0 Urinary tract infection, site not specified; I47.20 Ventricular tachycardia, unspecified; E87.20 Acidosis, unspecified; I51.81 Takotsubo syndrome; E87.0 Hyperosmolality and hypernatremia; Z66 Do not resuscitate; E87.5 Hyperkalemia; I46.9 Cardiac arrest, cause unspecified; D64.9 Anemia, unspecified; E83.39 Other disorders of phosphorus metabolism; I49.01 Ventricular fibrillation; R57.0 Cardiogenic shock; Z96.652 Presence of left artificial knee joint; E87.6 Hypokalemia; F02.80 Dementia in other diseases classified elsewhere, unspecified severity, without behavioral disturbance, psychotic disturbance, mood disturbance, and anxiety; G30.9 Alzheimer's disease, unspecified; R74.01 Elevation of levels of liver transaminase levels; Z51.5 Encounter for palliative care; X58.XXXA Exposure to other specified factors, initial encounter; Y93.89 Activity, other specified; Y92.89 Other specified places as the place of occurrence of the external cause; Y99.8 Other external cause status
CPT/HCPCS: 31500; 36415; 36430; 36600; 70450; 71045; 71260; 72125; 72128; 72131; 73502; 74018; 74177; 80048; 80053; 80202; 80305; 80320; 81001; 82272; 82803; 82948; 83036; 83605; 83690; 83735; 83880; 84100; 84132; 84134; 84145; 84484; 85018; 85025; 85027; 85610; 85651; 85730; 86885; 86900; 86901; 86920; 87040; 87070; 87081; 87088; 92508; 92616; 92950; 93005; 93306; 93308; 94002; 94003; 94760; 94799; 96361; 96365; 99291; 99292; A4615; A4624; A5200; A6213; A6258; A6449; C1751; G0378; J0131; J0171; J1644; J1756; J1815; J1938; J2003; J2060; J2270; J2405; J2470; J2543; J2704; J3010; J3370; J3372; J3373; J3480; J3490; J7030; J7040; J7050; J7070; J7120; P9016; Q9967